=== PATIENT | male | born 1930 | race Caucasian/White ===

== ENCOUNTER 2017-01-07 16:50 | Observation (INO) | payer MEDICARE ==
--- OUTSIDE RECORDS SUMMARY | 2017-01-07 16:53 | XMS | Clinical Summary ---
:1930 Author Organization [facility] Address [address] [place] [address] Phone Care Team Providers Name Role Phone , Primary Care Provider Unavailable Allergies Not on File Current Medications Not on file Active Problems Not on file Social History Tobacco Use Types Packs/Day Years Used Date Never Assessed Sex Assigned at Date Recorded Not on file Last Filed Vital Signs Not on file Plan of Treatment Not on file Results Not on filefrom Last 3 Months
[2017-01-07 17:28] LABS: #Basophils 0.1 thou/uL (0.0-0.2); #Eosinphils 0.2 thou/uL (0.0-0.7); #Lymphocytes 1.9 thou/uL (1.20-3.40); #Monocytes 0.7 thou/uL (0.11-0.59); #Neutrophils 6.3 thou/uL (1.40-6.50); %Basophils 0.8 % (0.0-1.0); %Eosinophils 2.4 % (0.0-10.0); %Lymphocytes 20.9 % (21.0-51.0); %Monocytes 7.5 % (0.0-10.0); Hematocrit 43.1 % (42.0-52.0); Mean Platelet Volume 9.1 fL (7.4-10.4); Red Blood Cell (RBC) Count 4.39 mill/uL (4.70-6.10); White Blood Cell (WBC) Count 9.2 thou/uL (4.8-10.8)
[2017-01-07 17:34] LABS: PTT 30.7 SEC (22.9-36.1); Prothrombin Time 14.9 SEC (12.0-14.7)
[2017-01-07] MEDS ORDERED: Ondansetron HCl/PF 4 MG/2 ML Vial ONE (17:52)
[2017-01-07 17:53] LABS: ALT (SGPT) 11 U/L (8-55); AST (SGOT) 12 U/L (5-34); Alkaline Phosphatase 78 U/L (40-150); Anion Gap 12 mmol/L (10-20); BUN (Urea Nitrogen) 14 mg/dL (8.4-25.7); Bilirubin, Total 0.5 mg/dL (0.2-1.2); Calc. Creatinine Clearance 0 mL/min (70-130); Calcium 8.8 mg/dL (7.8-10.44); Carbon Dioxide 21 mmol/L (23-31); Chloride 109 mmol/L (98-107); Estimated GFR-MDRD 88; Globulin 2.8 g/dL (2.4-3.5); Lipase 5 U/L (8-78); Protein, Total 6.5 g/dL (5.8-8.1)
[2017-01-07] MEDS ORDERED: Pantoprazole 40 MG VIAL ONE (18:50)
[2017-01-07] MEDS ORDERED: Sodium Chloride 0.9% 1,000 ML IV SCH (20:12)
[2017-01-07] MEDS ORDERED: Acetaminophen 325 MG TAB PO PRN ×2 (20:12)
[2017-01-07] MEDS ORDERED: Ondansetron HCl/PF 4 MG/2 ML Vial IVP PRN ×2 (20:12)
[2017-01-07] MEDS ORDERED: Ondansetron ODT 4 MG TAB SL PRN (20:12)
[2017-01-07] MEDS ORDERED: PROVENTIL INHALER 6.7 G (200 INHALATIONS) INH PRN (20:14)
[2017-01-07] MEDS ORDERED: Fluticasone Propionate Nasal Spray 16 gm Bottle NASAL PRN (20:14)
[2017-01-07 20:38] LABS: Hematocrit 44.6 % (42.0-52.0)
[2017-01-07] MEDS ORDERED: TESTOSTERONE TOP SCH (21:00)
[2017-01-07] MEDS ORDERED: Pantoprazole 40 MG VIAL IVP SCH (21:00)
--- NOTE | 2017-01-07 21:07 | HP ---
PRIMARY CARE PHYSICIAN: Dr. Pratik Mendoza. CHIEF COMPLAINT: Gastrointestinal bleed. HISTORY OF PRESENT ILLNESS: Mr. Justice is a pleasant 86-year-old gentleman, who was seen at [facility] on 01/07/2017. He was hospitalized at this facility in 06/2016 for GI bleed. He had bidirectional scopes at that t sudhir. He had a normal esophagogastroduodenoscopy. Colonoscopy showed a 1 cm cecal polyp, which was removed as well as 2 small ascending colon polyps, which were both removed. He also had heavy sigmo id diverticulosis. No active bleeding or bleeding lesions were infiltrated at that time. He reports doing well until last night. Last night, he thinks he may have had a dark stool, but is unsure. Around 4:00 p.m. today, he started having bloody diarrhea. He reports that the toilet bowl was filled with milka blood. He reports that the blood was maroon to red in color. However, he al so reports that he may have seen some black material in the stool. He denies any chest pain, shortness of breath, fevers, or lightheadedness. He denies any abdominal pain. He came to the emergency room. There, he had another bowel movement, with 3 blood clots. REVIEW OF SYSTEMS: The following complete review of systems was negative, unless otherwise mentione d in the HPI or below: CONSTITUTIONAL: Weight loss or gain, sense of well-being, ability to conduct usual activities, exer cise tolerance. SKIN/BREAST: Rash, itching, changes in hair growth or loss, nail changes, breast lumps, tenderness, swelling, nipple discharge. EYES: Vision, double vision, tearing, blind spots, pain. ENT/MOUTH: Headaches (location, time of onset, duration, precipitating factors), vertigo, lighthead edness, injury. Vision, double vision, tearing, blind spots, pain, nose bleeding, colds, obstruction , discharge, dental difficulties, gingival bleeding, dentures, neck stiffness, pain, tenderness, mas ses in thyroid or other areas. CARDIOVASCULAR: Precordial pain, substernal distress, palpitations, syncope, dyspnea on exertion, o rthopnea, nocturnal paroxysmal dyspnea, edema, cyanosis, hypertension, heart murmurs, varicosities, phlebitis, claudication. RESPIRATORY: Pain, shortness of breath, wheezing, stridor, cough, hemoptysis, fever or night sweats . GASTROINTESTINAL: Poor appetite, dysphagia, indigestion, abdominal pain, heartburn, eructation, sasha sea, vomiting, hematemesis, jaundice, constipation, or diarrhea, abnormal stools (nicki-colored, lynette y, bloody, greasy, foul smelling), flatulence, hemorrhoids, recent changes in bowel habits. GENITOURINARY: Urgency, frequency, dysuria, nocturia, hematuria, polyuria, oliguria, unusual (or ch gerard in) color of urine, stones, hesitancy, change in size of stream, dribbling, acute retention or incontinence, libido, potency. MUSCULOSKELETAL: Pain, swelling, redness or heat of muscles or joints, limitation, of motion, muscu lar weakness, atrophy, cramps. NEUROLOGIC/PSYCHIATRIC: Convulsions, paralyses, tremor, incoordination, paresthesias, difficulties with memory of speech, sensory or motor disturbances, or muscular coordination (ataxia, tremor), emo tional problems, anxiety, depression, previous psychiatric care, unusual perceptions, hallucinations . ALLERGY/IMMUNOLOGIC: Skin rash, anemia, bleeding tendency, polydipsia, polyuria, intolerance to hea t or cold. PAST MEDICAL HISTORY: Significant for diverticulosis, osteoarthritis, gout, dyslipidemia, and asthm a. PAST SURGICAL HISTORY: Significant for inguinal hernia repair, back surgery, right total hip arthro plasty, bilateral cataract surgery, left knee replacement and bidirectional GI scopes. ALLERGIES: LORAZEPAM, NONSTEROIDAL ANTI-INFLAMMATORY AGENTS and CODEINE. CURRENT MEDICATIONS: Protonix 40 mg daily, amlodipine 10 mg daily, Breo Ellipta 100/25 mcg once kain ly, potassium chloride 20 mEq daily. He may be on other medications as well, these need to be abraham fied. FAMILY HISTORY: Significant for gastric ulcers in his father. SOCIAL HISTORY: The patient denies tobacco use, reports rare alcohol use, denies recreational drug use. PHYSICAL EXAMINATION: GENERAL: Mr. Justice is awake and alert, not in acute distress. VITAL SIGNS: Blood pressure is 152/78, pulse is 71. He is breathing at rate of 24 and saturating 9 6% on room air. He is afebrile. EYES: No scleral icterus. No conjunctival pallor. ENT: Moist mucosal membranes, no oropharyngeal erythema or exudates. NECK: Supple, nontender, normal range of movement, trachea is midline. RESPIRATORY: Accessory muscles of breathing are not active. Chest wall movements are symmetric phuc aterally. LUNGS: Clear to auscultation without wheeze, rhonchi or crepitations. CARDIOVASCULAR: S1 and S2 are heard, regular. Peripheral pulses palpable. No carotid bruit, no pe ricardial rub. ABDOMEN: Soft, nontender, bowel sounds heard, no hepatomegaly, no splenomegaly. NEUROLOGIC: Cranial nerves II-XII are intact. Deep tendon reflexes are 2+. SKIN: No rashes or subcutaneous nodules. MUSCULOSKELETAL: Power is 5/5 in all 4 extremities. Normal range of movement at all major extremit y joints. NEUROLOGIC: Cranial nerves II-XII are intact. Deep tendon reflexes are 2+. PSYCHIATRIC: Normal mood and normal affect, patient is oriented to time, place, and person. LABORATORY DATA: Mr. Justice's labs and investigations were reviewed. He had an electrocardiogra m, which showed sinus rhythm, no ST changes to suggest an acute coronary syndrome. Laboratory inves tigations show hemoglobin 14.3, normal white count, normal platelet count, INR 1.2 and unremarkable comprehensive metabolic profile. ASSESSMENT AND PLAN: Mr. Justice is a pleasant 86-year-old gentleman, who was seen at [facility] on 01/07/2017. His problem list includes: 1. Gastrointestinal bleed: Most likely lower gastrointestinal bleed, given his history as well as description of the blood. However, he does report some black material. He will be admitted to the hospital on observation status. We will recheck his hemoglobin. We will start him on a PPI for now . Gastroenterology Service has already been consulted by the Emergency Room Department. 2. Gout: Continue allopurinol. 3. Dyslipidemia: Continue statin. 4. Asthma: Resume home medications after confirmation. Asthma is stable. LEVEL OF RISK: Moderate. LEVEL OF COMPLEXITY: Moderate. CODE STATUS: I discussed his code status. He is FULL CODE.
[2017-01-07] MEDS: ALFUZOSIN HCL 10 MG PO SCH (21:28)
[2017-01-07] MEDS: Temazepam 15 MG CAP PO SCH (21:28)
[2017-01-07] MEDS: cycloSPORINE 0.05% Ophthalmic Droperette EA EYE SCH (21:29)
[2017-01-07 21:58] VITALS: BMI 25.8
[2017-01-08 05:19] LABS: #Basophils 0.1 thou/uL (0.0-0.2); #Eosinphils 0.5 thou/uL (0.0-0.7); #Lymphocytes 2.9 thou/uL (1.20-3.40); #Neutrophils 3.9 thou/uL (1.40-6.50); %Basophils 1.3 % (0.0-1.0); %Eosinophils 5.6 % (0.0-10.0); %Lymphocytes 34.5 % (21.0-51.0); %Monocytes 11.6 % (0.0-10.0); Hematocrit 39.1 % (42.0-52.0); Mean Platelet Volume 9.4 fL (7.4-10.4); Red Blood Cell (RBC) Count 3.98 mill/uL (4.70-6.10); White Blood Cell (WBC) Count 8.4 thou/uL (4.8-10.8)
[2017-01-08 05:38] LABS: Anion Gap 9 mmol/L (10-20); BUN (Urea Nitrogen) 14 mg/dL (8.4-25.7); Calc. Creatinine Clearance 80 mL/min (70-130); Calcium 8.6 mg/dL (7.8-10.44); Carbon Dioxide 24 mmol/L (23-31); Chloride 111 mmol/L (98-107); Estimated GFR-MDRD 87
[2017-01-08] MEDS: Atorvastatin Calcium 20 MG TAB PO SCH (08:09)
[2017-01-08] MEDS: Tamsulosin HCl 0.4 MG CAP PO SCH (08:09)
[2017-01-08] MEDS: Allopurinol 300 MG TAB PO SCH (08:09)
[2017-01-08] MEDS: cycloSPORINE 0.05% Ophthalmic Droperette EA EYE SCH ×2 (08:15→20:51)
[2017-01-08] MEDS: ALFUZOSIN HCL 10 MG PO SCH ×2 (08:15→19:56)
[2017-01-08] MEDS ORDERED: Pantoprazole 40 MG VIAL IVP SCH (09:00)
--- NOTE | 2017-01-08 13:45 | CON ---
DATE OF CONSULTATION: 01/08/2017 HISTORY OF PRESENT ILLNESS: The patient is an 86-year-old male, who was in his normal sta te of health until yesterday afternoon when he started passing some dark blood per rectum. He descr ibed the blood as black. He has had similar episodes, the last being in June of this year, at [facility] time he was seen by Dr. Alan with a similar presentation. At that time, he went both upper and lo wer endoscopy and this showed a normal EGD in the colon. He had diverticulosis of the sigmoid and s everal small polyps. He reports he has had bowel movements up to 4 in the morning and then his last bowel movement he said was without any blood. He denies any NSAIDs, any blood thinners. He denies any abdominal pain, any weight loss. He denies any vomiting. He was slightly nauseated yesterday. PAST MEDICAL HISTORY: Includes diverticulosis, gout, hyperlipidemia and asthma. PAST SURGICAL HISTORY: Includes a knee surgery, hip surgery, inguinal hernia. ALLERGIES: Include CODEINE, LORAZEPAM, NSAIDS, AMBIEN and DARVOCET. CURRENT MEDICATIONS: Include Protonix 40 mg p.o. daily, amlodipine 10 mg p.o. daily, Breo Ellipta 1 00/25 mcg p.o. daily, potassium chloride 20 mEq per day, verapamil 180 mg p.o. b.i.d., Restoril 15 m g p.o. at bedtime, tamsulosin 0.5 mg daily, hydrocodone 1-2 tabs p.o. q.6 hours p.r.n. He takes 1-2 week eyedrops, stool softener, Lipitor 20 mg p.o. daily, allopurinol 300 mg p.o. daily, alfuzosin 1 0 mg p.o. b.i.d. and albuterol 90 mcg daily p.r.n. SOCIAL HISTORY: Does not smoke or drink. FAMILY HISTORY: Negative for GI or liver disease. REVIEW OF SYSTEMS: CONSTITUTIONAL: No fever or chills. No weight loss. EYES: No blurred vision or double vision. ENT: No sore throat or earaches. CARDIOVASCULAR: No chest pain or palpitations. PULMONARY: No shortness of breath, cough or wheezing. GASTROINTESTINAL: See above. GENITOURINARY: No hematuria or dysuria. MUSCULOSKELETAL: No joint pain or muscle weakness. SKIN: No rashes. NEUROLOGIC: No numbness or seizure activity. PHYSICAL EXAMINATION: GENERAL: Shows a well-developed, well-nourished elderly male, in no acute distress. VITAL SIGNS: Temperature 98.6, pulse 72, respiration 18, blood pressure 124/65. HEENT: Unremarkable. NECK: Supple. CHEST: Clear. CARDIOVASCULAR: Regular rate and rhythm. ABDOMEN: Soft, nontender without organomegaly or masses. Bowel sounds are present and normoactive. RECTAL: Deferred. EXTREMITIES: Normal. NEUROLOGIC: Nonfocal. LABORATORY DATA: Shows admission hemoglobin of 14.3, dropping to 12.6. PT is now 49 with INR 1.2. Chemistries significant for a chloride of 109, CO2 of 21, lipase 5. ASSESSMENT: 1. Gastrointestinal blood -- I suspect this is a lower diverticular bleed. 2. History of multiple gastrointestinal bleeds in the past felt to be diverticular hemorrhage. 3. History of colon polyps. 4. Anemia secondary to gastrointestinal blood loss. RECOMMENDATIONS: 1. Resume diet. 2. Monitor H\T\H. 3. If the patient's blood count was normal in the morning, he could be discharged from [facility]
[2017-01-08] MEDS ORDERED: Melatonin 3 MG TAB PO PRN (15:41)
--- NOTE | 2017-01-08 15:43 | PDOC.PN ---
- Subjective Encounter Start Date: 01/08/17 Encounter Start Time: 15:41 Patient seen and examined. No new complaints. No overnight events. Had a BM earlier today - no blood per patient report - Objective Resuscitation Status: Resuscitation Status FULL:Full Resuscitation MAR Reviewed: Yes Vital Signs & Weight: Vital Signs (12 hours) Temp Pulse Resp BP Pulse Ox 01/08/17 09:12 93 L 01/08/17 08:30 98.6 F 72 18 01/08/17 07:25 98.6 F 72 18 124/65 91 L 01/08/17 05:02 98.5 F 75 20 137/66 97 Weight Weight 190 lb 11.2 oz I&O: 01/07/17 01/08/17 01/09/17 06:59 06:59 06:59 Intake Total 899 700 Balance 899 700 Result Diagrams: 01/08/17 05:02 01/08/17 05:02 Phys Exam - Physical Examination Constitutional: NAD Respiratory: no wheezing, no rhonchi Cardiovascular: RRR, no rub Gastrointestinal: soft, non-tender, positive bowel sounds Musculoskeletal: no edema Neurological: moves all 4 limbs Psychiatric: A&O x 3 Dx/Plan (1) Lower GI bleed Code(s): K92.2 - GASTROINTESTINAL HEMORRHAGE, UNSPECIFIED Status: Acute (2) Anemia due to acute blood loss Code(s): D62 - ACUTE POSTHEMORRHAGIC ANEMIA Status: Acute (3) CKD (chronic kidney disease) stage 2, GFR 60-89 ml/min Code(s): N18.2 - CHRONIC KIDNEY DISEASE, STAGE 2 (MILD) Status: Chronic (4) HLD (hyperlipidemia) Code(s): E78.5 - HYPERLIPIDEMIA, UNSPECIFIED Status: Chronic (5) Mild intermittent asthma Code(s): J45.20 - MILD INTERMITTENT ASTHMA, UNCOMPLICATED Status: Chronic - Plan cont current plan of care, plan discussed w/ family, out of bed/ambulate, DVT proph w/SCDs * AM labs * GI following * DC in AM if H/H stable per GI * Cont current meds as below Review of Systems - Review of Systems Constitutional: negative: Fever, Chills, Sweats, Weakness, Malaise, Other Respiratory: negative: Cough, Dry, Shortness of Breath, Hemoptysis, SOB with Excertion, Pleuritic Pain, Sputum, Wheezing Cardiovascular: negative: Chest Pain, Palpitations, Orthopnea, Paroxysmal Noc. Dyspnea, Edema, Light Headedness, Other Genitourinary: negative: Dysuria, Frequency, Incontinence, Hematuria, Retention , Other - Medications/Allergies Allergies/Adverse Reactions: Allergies Allergy/AdvReac Type Severity Reaction Status Date / Time codeine Allergy Unknown Verified 05/20/14 09:49 lorazepam Allergy Verified 05/20/14 09:49 NSAIDS (Non-Steroidal AdvReac Unknown Verified 05/20/14 09:49 Anti-Inflamma zolpidem tartrate AdvReac Unknown Verified 05/20/14 09:49 [From Ambien] propoxyphene napsylate AdvReac Verified 05/20/14 09:49 [From Darvocet-N 100] Medications: Current Medications Acetaminophen (Tylenol) 650 mg PO Q4H PRN PRN Reason: Headache/Fever or Pain Albuterol Sulfate (Proventil Hfa) 1 puff INH DAILYPRN PRN PRN Reason: SOB &/or Wheezing Alfuzosin HCl (Uroxatral) 10 mg PO BID [facility] Last Admin: 01/08/17 08:15 Dose: 10 mg Allopurinol (Zyloprim) 300 mg PO DAILY [facility] Last Admin: 01/08/17 08:09 Dose: 300 mg Atorvastatin Calcium (Lipitor) 20 mg PO DAILY [facility] Last Admin: 01/08/17 08:09 Dose: 20 mg Cyclosporine (Restasis) 0 ml EA EYE BID [facility] Last Admin: 01/08/17 08:15 Dose: 0.4 ml Fluticasone Propionate (Flonase Nasal [place]) 0 gm NASAL DAILYPRN PRN PRN Reason: Nasal Congestion Melatonin (Melatonin) 3 mg PO HS PRN PRN Reason: Insomnia Ondansetron HCl (Zofran) 4 mg IVP Q6H PRN PRN Reason: Nausea/Vomiting Pantoprazole Sodium (Protonix) 40 mg PO BID [facility] Last Admin: 01/08/17 09:20 Dose: Not Given Sodium Chloride (Flush - Normal Saline) 10 ml IV BID [facility] Last Admin: 01/08/17 08:12 Dose: Not Given Tamsulosin HCl (Flomax) 0.4 mg PO DAILY [facility] Last Admin: 01/08/17 08:09 Dose: 0.4 mg Temazepam (Restoril) 15 mg PO HS [facility] Last Admin: 01/07/17 21:28 Dose: 15 mg Verapamil HCl (Calan Sr) 180 mg PO BID [facility] Last Admin: 01/08/17 08:09 Dose: 180 mg
[2017-01-08] MEDS: Temazepam 15 MG CAP PO SCH (20:51)
[2017-01-09 04:30] LABS: #Basophils 0.1 thou/uL (0.0-0.2); #Eosinphils 0.6 thou/uL (0.0-0.7); #Lymphocytes 2.7 thou/uL (1.20-3.40); #Neutrophils 3.7 thou/uL (1.40-6.50); %Basophils 0.9 % (0.0-1.0); %Eosinophils 7.6 % (0.0-10.0); %Lymphocytes 33.6 % (21.0-51.0); %Monocytes 12.1 % (0.0-10.0); Hematocrit 35.7 % (42.0-52.0); Red Blood Cell (RBC) Count 3.63 mill/uL (4.70-6.10); White Blood Cell (WBC) Count 8.2 thou/uL (4.8-10.8)
[2017-01-09 08:30] VITALS: BP 123/58; TEMP 98.9
--- NOTE | 2017-01-09 09:20 | PDOC.PN ---
- Subjective Encounter Start Date: 01/09/17 Encounter Start Time: 09:16 Subjective: no bleeding, feels good - Objective Resuscitation Status: Resuscitation Status FULL:Full Resuscitation MAR Reviewed: Yes Vital Signs & Weight: Vital Signs (12 hours) Temp Pulse Resp BP BP Pulse Ox 01/09/17 08:00 98.9 F 71 12 123/58 L 91 L 01/09/17 04:00 98.8 F 69 18 100/55 L 96 01/09/17 03:56 95 Weight Weight 190 lb 12.8 oz I&O: 01/08/17 01/09/17 01/10/17 06:59 06:59 06:59 Intake Total 899 1560 Output Total 1600 Balance 899 -40 Result Diagrams: 01/09/17 04:21 01/08/17 05:02 Phys Exam - Physical Examination Constitutional: NAD Neck: no JVD Respiratory: clear to auscultation bilateral Cardiovascular: RRR, no significant murmur Gastrointestinal: soft, non-tender, positive bowel sounds Musculoskeletal: no edema Dx/Plan (1) Anemia due to acute blood loss Code(s): D62 - ACUTE POSTHEMORRHAGIC ANEMIA Status: Acute (2) Lower GI bleed Code(s): K92.2 - GASTROINTESTINAL HEMORRHAGE, UNSPECIFIED Status: Acute (3) CKD (chronic kidney disease) stage 2, GFR 60-89 ml/min Code(s): N18.2 - Status: Chronic (4) HLD (hyperlipidemia) Code(s): E78.5 - HYPERLIPIDEMIA, UNSPECIFIED Status: Chronic (5) Mild intermittent asthma Code(s): J45.20 - MILD INTERMITTENT ASTHMA, UNCOMPLICATED Status: Chronic - Plan cont current tx, discuss with GI * .
[2017-01-09] MEDS: Allopurinol 300 MG TAB PO SCH (09:29)
[2017-01-09] MEDS: Tamsulosin HCl 0.4 MG CAP PO SCH (09:29)
[2017-01-09] MEDS: Atorvastatin Calcium 20 MG TAB PO SCH (09:30)
[2017-01-09] MEDS: ALFUZOSIN HCL 10 MG PO SCH (10:00)
[2017-01-09] MEDS: cycloSPORINE 0.05% Ophthalmic Droperette EA EYE SCH (11:21)
--- NOTE | 2017-01-09 12:40 | DIS ---
TRANSFER OF CARE NOTE DATE OF ADMISSION: 01/07/2017 DATE OF DISCHARGE: 01/09/2017 DISCHARGE DISPOSITION: Home. FINAL DIAGNOSES: 1. Lower gastrointestinal bleeding, stopped. 2. Dyslipidemia. 3. History of gout. 4. Unspecified, asthma. 5. Hypertension. DISCHARGE MEDICATIONS: Verapamil 180 mg twice a day, temazepam 15 mg at bedtime, Flomax 0.4 mg a da y, Viagra p.r.n., Protonix 40 mg a day, hydrocodone 5/325 1-2 tabs every 6 hours as needed, ferrous sulfate 300 mg a day, Lipitor 20 mg a day, allopurinol 300 mg a day, Alfuzosin 10 mg twice a day, al buterol HFA p.r.n. ALLERGIES: CODEINE, LORAZEPAM, NSAIDs, AMBIEN and DARVON. PENDING AT THE TIME OF DISCHARGE: Nothing. CODE STATUS: Full. HOSPITAL COURSE: The patient admitted with dark stool then had some bloody diarrhea. He was placed in the hospital. His bleeding has stopped. Serial hemoglobins were 14.3, 12.6, 11.6. Current vit al signs are stable with no tachycardia, etc. The remainder of his laboratory; white count was normal, platelet count was normal. Comp metabolic profile was normal except for a CO2 of 21, chloride 109. INR was 1.2. He was seen in consultation by Dr. Nikhil Burrell. He did not think that the patient needed further end oscopy as patient had lower diverticular bleed in the past. His hemoglobin is adequate. His vital signs are stable. He is being discharged. He has had no procedures. He has been told to see his P CP for followup in 7 days.
== END 2017-01-09 13:13 | disposition home or self-care (01) ==
LOC: ERS 16:50 → 2SW 18:18
PROVIDERS: ADMIT Internal Medicine; ATTEND Internal Medicine
DX: K92.2 Gastrointestinal hemorrhage, unspecified (principal); E78.5 Hyperlipidemia, unspecified; J45.909 Unspecified asthma, uncomplicated; I10 Essential (primary) hypertension; M10.9 Gout, unspecified; Z88.5 Allergy status to narcotic agent; Z88.6 Allergy status to analgesic agent; Z88.8 Allergy status to other drugs, medicaments and biological substances; Z98.890 Other specified postprocedural states; Z96.652 Presence of left artificial knee joint; Z87.11 Personal history of peptic ulcer disease
CPT/HCPCS: 80048; 80053; 82274; 83690; 85014; 85018; 85025 ×3; 85610; 85730; 86850; 86900; 86901; 93005; 96361 ×2; 96374; 96375; 96376; 99285; G0378; 36415; A4216; C9113; J2405

== ENCOUNTER 2018-10-25 09:45 | Inpatient (IN) | payer MEDICARE ==
[2018-10-25] MEDS ORDERED: Ketorolac Tromethamine 30 MG/ML VIAL ONE (10:33)
--- NOTE | 2018-10-25 11:07 | RAD ---
XR Knee Lt 4 View STANDARD HISTORY: Fall, left knee pain FINDINGS: No fracture or dislocation is identified. There are postop changes of total knee arthroplasty in good position and alignment. Vascular calcifications are present
--- NOTE | 2018-10-25 11:24 | RAD ---
LEFT HIP 2 VIEWS: Date: 10/25/18 HISTORY: Hip pain status post fall. FINDINGS: There is a nondisplaced intertrochanteric fracture of the left hip. Bones are demineralized. IMPRESSION: Nondisplaced intertrochanteric fracture of the left hip. POS: [facility]
--- NOTE | 2018-10-25 11:26 | RAD ---
AP PELVIS: Date: 10/25/18 HISTORY: Fall. FINDINGS: The bones are demineralized. A right hip prosthesis is present. There are vascular calcifications not ed. A nondisplaced intertrochanteric fracture of the left hip is seen. IMPRESSION: Intertrochanteric fracture of the left hi. POS: [facility]
[2018-10-25 12:29] LABS: #Eosinphils 0.2 thou/uL (0.0-0.7); #Lymphocytes 1.6 thou/uL (1.20-3.40); #Monocytes 0.8 thou/uL (0.11-0.59); #Neutrophils 9.6 thou/uL (1.40-6.50); %Basophils 0.4 % (0.0-1.0); %Eosinophils 1.6 % (0.0-10.0); %Lymphocytes 12.8 % (21.0-51.0); %Monocytes 6.8 % (0.0-10.0); %Neutrophils 78.4 % (42.0-75.0); Hemoglobin 12.6 g/dL (14.0-18.0); Mean Corpuscular HGB CONC 31.1 g/dL (32.0-36.0); Mean Corpuscular Volume 93.5 fL (78.0-98.0); Mean Platelet Volume 9.8 fL (7.4-10.4); Platelet Count 186 thou/uL (130-400); RBC Distribution Width 14.5 % (11.5-14.5); Red Blood Cell (RBC) Count 4.33 mill/uL (4.70-6.10); White Blood Cell (WBC) Count 12.3 thou/uL (4.8-10.8)
[2018-10-25 12:36] LABS: INR-International Normal Ratio 1.1; Prothrombin Time 14.4 SEC (12.0-14.7)
--- NOTE | 2018-10-25 13:01 | RAD ---
SINGLE VIEW CHEST: Date: 10/25/18 COMPARISON: 12/11/11. HISTORY: Slip and fall with chest pain. FINDINGS: Single view of the chest shows a normal sized cardiomediastinal silhouette with atherosclerotic calci fications in the aorta. There is no evidence of consolidation, mass, or pleural effusion. Degenerativ e changes are seen in the spine and shoulders. IMPRESSION: No evidence of acute cardiopulmonary disease. POS: [facility]
--- NOTE | 2018-10-25 13:13 | CON ---
DATE OF CONSULTATION: 10/25/2018 This is Marya Easton PA-C dictating a report for Lyle Busby MD. REQUESTING PHYSICIAN: Day Reynoso, Nurse Practitioner in the ER. CONSULTING PHYSICIAN: Lyle Busby MD. REASON FOR CONSULTATION: Left hip fracture. HISTORY OF PRESENT ILLNESS: This is an 87-year-old male, who presented to the emergency department by ground EMS transportation after a mechanical fall at home. The patient reported left hip pain and left knee pain. He states that he got up to use the bathroom and tripped and fell either over his sock or a rug. He denied hitting his head or any loss of consciousness. He denies any syncopal episode. He currently denies any numbness or tingling in the left lower extremity. This pain is worse with movement and relieved with rest, currently described as dull and achy in nature. PAST MEDICAL HISTORY: Significant for diverticulitis, herniated disk in the back, hypertension, asthmatic bronchitis. PAST SURGICAL HISTORY: Includes right hip surgery, left knee surgery, hernia surgery, cataract surgery, back surgery. SOCIAL HISTORY: The patient denies any alcohol, drug use, or smoking history. He lives at home with his , who is currently at bedside. He uses a cane to ambulate with. They live independently. REVIEW OF SYSTEMS: 10-point review of systems conducted and otherwise negative except for stated above. ALLERGIES: INCLUDE ACETAMINOPHEN, CODEINE, LORAZEPAM, NSAIDS, ZOLPIDEM, PROPOXYPHENE NAPSYLATE. FAMILY HISTORY: Reviewed, noncontributory. PHYSICAL EXAMINATION: VITAL SIGNS: Blood pressure 177/92, pulse of 72, respiratory rate of 20, temperature 98.8, pain level of 5, and O2 saturations of 97% on room air. GENERAL: The patient is awake and alert. He is very pleasant and cooperative with exam today. He is in no apparent distress. Nurses are currently attempting to start IV on him at this time. HEENT: Head is normocephalic and atraumatic. NECK: Supple. Trachea midline. Breathing is nonlabored. EXTREMITIES: All extremities were evaluated. No obvious deformities are noted. The left lower extremity shows that the patient is able to actively move his ankles and foot. He is able to wiggle his toes. Sensation intact distally. Capillary refill 3 seconds. Evaluation of the left thigh and hip region shows no skin lesions. The patient is able to slightly flex at the hip and bend the knee. This reproduces pain. The other three extremities were evaluated. No obvious injuries are noted. LABORATORY DATA: Unavailable at this time for review as nurses are still attempting to obtain an IV. RADIOGRAPHIC IMAGING: Today including 2 views of the left hip shows a nondisplaced intertrochanteric femur fracture. ASSESSMENT: Left hip intertrochanteric femur fracture. PLAN: At this time, the patient has been n.p.o. since last night. Per the patient's history, he has no significant cardiac history. We would like to take him to the operating room today in order to restore function and promote his ambulatory status. Risks, benefits, and alternatives of surgery were discussed at length with the patient and his today at bedside. They verbalized understanding and are amenable to this plan of care. He will be admitted to the Trauma Services. Postoperatively, he will be admitted to [place] [address] surgical floor, where he will work with physical therapist and occupational therapist. Long-term, his family would like for him to go to rehab. Job ID: [id number]
[2018-10-25] MEDS ORDERED: Dextrose 50% Abboject 50 ML SYRINGE SLOW IVP PRN (13:22)
[2018-10-25] MEDS ORDERED: hydrALAZINE 20 MG/ML VIAL SLOW IVP PRN (13:22)
[2018-10-25] MEDS ORDERED: Promethazine HCl 25 MG/ML VIAL IM PRN (13:22)
[2018-10-25] MEDS ORDERED: Ondansetron PF 4 MG/2 ML Vial IVP PRN (13:22)
[2018-10-25] MEDS ORDERED: Dextrose 5% in Water 1,000 ML IV PRN (13:22)
[2018-10-25] MEDS ORDERED: traMADol HCl 50 MG TAB PO PRN (13:26)
[2018-10-25] MEDS ORDERED: Sodium Chloride 0.9% 1,000 ML IV SCH (13:30)
[2018-10-25] MEDS ORDERED: CEFAZOLIN 2 GM in Premix Bag 1 BAG IVPB SCH (14:00)
--- NOTE | 2018-10-25 14:28 | HP ---
TRAUMA SURGEON: Dr. Gutierrez. CONSULTING PHYSICIAN: Dr. Busby. HISTORY OF PRESENT ILLNESS: The patient is an 87-year-old male, who presented through the emergency department via EMS after a mechanical fall at home. The patient reported he had gotten up to go to use the bathroom. He uses a cane and subsequently he got hung up in an archway and fell onto his left side. He reported left hip and knee pain. Denies loss of consciousness or anticoagulation use. He was not able to get up off the floor and ambulate after he fell, and subsequently, his called EMS. He denies nausea, vomiting, diarrhea, numbness and tingling in his lower extremities, or loss of consciousness. REVIEW OF SYSTEMS: All additional 10-point review of systems is negative except as indicated above. PAST MEDICAL HISTORY: Diverticulosis, osteoarthritis, gout, hyperlipidemia, asthma, hypertension, and BPH. PAST SURGICAL HISTORY: Right hip replacement, back surgeries, left knee replacement, bilateral inguinal hernia repairs. SOCIAL HISTORY: The patient lives at home with his . He walks with a walker. He drinks about 1 beer per week. He denies any history of drug or tobacco use. MEDICATIONS: 1. Flomax. 2. Restasis. 3. Senna. 4. Ferrous sulfate. 5. Verapamil. 6. Lipitor. 7. Fluticasone. 8. AndroGel. 9. Protonix. 10. Tylenol. 11. Melatonin. 12. Hydrochlorothiazide. 13. Lunesta. 14. Viagra. 15. Alfuzosin. 16. Tizanidine. 17. Losartan. 18. Potassium. 19. Allopurinol. ALLERGIES: NO KNOWN DRUG ALLERGIES. PHYSICAL EXAMINATION: VITAL SIGNS: Temperature 98.8, pulse 72, respirations 20, oxygen saturation 97% on room air, and blood pressure 166/82. PRIMARY SURVEY: Airway intact. Adequate breath sounds bilaterally. 2+ pulses in the bilateral radials, femorals, and DPs. GCS is 15. Gross motor and sensation are intact. No lacerations, bruising, or external bleeding. SECONDARY SURVEY: HEAD: Normocephalic, atraumatic. No gross palpable skull deformities. EYES: Pupils are 3 to 2, equal, round, and reactive to light bilaterally. ENT: No hemotympanum. No epistaxis. No septal hematoma. Midface stable to manipulation. No blood in the oropharynx. Dentition is intact. No anterior neck injury/crepitus/tenderness. C-SPINE: No step-offs or deformities. Nontender. C-collar not in place. CHEST: Nontender. No crepitus. No abrasions or ecchymosis. Equal chest movement. ABDOMEN: Soft, nontender, and nondistended. PELVIS: Stable to manipulation. Left-sided pelvic tenderness. No abrasions or ecchymosis. RECTAL: Deferred. GENITOURINARY: Deferred. EXTREMITIES: No gross deformities. Left-sided thigh tenderness and left knee tenderness. No abrasions or ecchymosis noted. 2+ pulses in the bilateral radials, femorals, and DPs bilaterally. BACK/SPINE: No step-offs or deformities. Nontender to palpation of the thoracic or lumbar spine. No abrasions or ecchymosis noted. NEUROLOGIC: 5/5 strength in the bilateral fountain brush assembler, plantar flexion, and dorsiflexion. Gross normal sensation x4 extremities. LABORATORY FINDINGS: White count 12.3, hemoglobin 12.6, hematocrit 40.0, and platelets 186. INR 1.1. Troponin less than 0.010. DIAGNOSTIC FINDINGS: Pelvic x-ray demonstrates intertrochanteric fracture of the left hip. Hip x-ray demonstrates nondisplaced intertrochanteric fracture of the left hip. X-ray of the left knee demonstrates no fractures or dislocation identified. There is a postop change of total knee arthroplasty in good position and alignment. Vascular calcifications are present. Chest x-ray demonstrates no evidence of acute cardiopulmonary disease. ASSESSMENT: 1. Status post mechanical fall from standing. 2. Left intertrochanteric femur fracture. 3. History of diverticulosis, osteoarthritis, gout, hyperlipidemia, asthma, hypertension, and benign prostatic hypertrophy. PLAN: The patient was seen and evaluated by Dr. Busby of Orthopedic Surgery and they are planning for fixation likely today if they are able to get the OR time. He will be kept n.p.o. with normal saline at 70 an hour until he is able to take in food. CMP is still pending and we will follow that up as well and address any further issues. We will provide the patient with p.o. pain control and physical and occupational therapy will see the patient postoperatively. He will likely need discharge to rehab facility and we will place a consult for rehab screen as well. We will start his home medications as clinically indicated. The patient will be discussed with Dr. Gutierrez after this dictation. Job ID: [id number]
[2018-10-25 14:57] LABS: Albumin 3.8 g/dL (3.4-4.8)
[2018-10-25 14:58] LABS: Chloride 110 mmol/L (98-107); Potassium 3.6 mmol/L (3.5-5.1); Sodium 141 mmol/L (136-145)
[2018-10-25 14:59] LABS: Calcium 9.2 mg/dL (7.8-10.44); Glucose 94 mg/dL (83-110)
[2018-10-25 15:00] LABS: Globulin 2.3 g/dL (2.4-3.5); Protein, Total 6.1 g/dL (5.8-8.1)
[2018-10-25] MEDS ORDERED: Heparin 1,000 UNITS/ML VIAL ONE (15:00)
[2018-10-25 15:01] LABS: Anion Gap 13 mmol/L (10-20); Bilirubin, Total 0.8 mg/dL (0.2-1.2); Carbon Dioxide 22 mmol/L (23-31)
[2018-10-25 15:02] LABS: Alkaline Phosphatase 84 U/L (40-150)
[2018-10-25 15:03] LABS: Calc. Creatinine Clearance 0 mL/min (70-130); Estimated GFR-MDRD 87
[2018-10-25 15:04] LABS: BUN (Urea Nitrogen) 14 mg/dL (8.4-25.7)
[2018-10-25 15:05] LABS: ALT (SGPT) 14 U/L (8-55); AST (SGOT) 15 U/L (5-34)
[2018-10-25] MEDS ORDERED: Glycopyrrolate 0.2 MG/ML 5 ML SYRINGE ONE (15:34)
[2018-10-25] MEDS ORDERED: Ondansetron PF 4 MG/2 ML Vial ONE (15:34)
[2018-10-25] MEDS ORDERED: PROPOFOL 200 MG/20 ML VIAL ONE (15:34)
[2018-10-25] MEDS ORDERED: Lidocaine 1% PF 5 ML VIAL ONE (15:34)
[2018-10-25] MEDS ORDERED: Rocuronium Bromide 10 MG/ML (10ML VIAL) ONE (15:34)
[2018-10-25] MEDS ORDERED: Fentanyl 100 MCG/2 ML VIAL ONE ×3 (15:37→17:41)
[2018-10-25] MEDS ORDERED: Morphine 2 MG/ML SYRINGE SLOW IVP PRN (18:23)
[2018-10-25] MEDS: Senokot S 8.6-50 MG TAB PO SCH (19:53)
[2018-10-25] MEDS: traMADol HCl 50 MG TAB PO SCH ×2 (19:54)
[2018-10-25] MEDS: Acetaminophen 1,000 MG in Premix Bag 1 BAG IVPB SCH (19:59)
[2018-10-25] MEDS ORDERED: PROVENTIL INHALER 6.7 G (200 INHALATIONS) INH PRN (20:08)
[2018-10-25] MEDS ORDERED: Fluticasone Propionate Nasal Spray 16 gm Bottle NASAL PRN (20:08)
[2018-10-25 20:16] VITALS: BMI 25.9
[2018-10-25] MEDS ORDERED: Famotidine 20 MG TAB PO SCH (21:00)
--- NOTE | 2018-10-25 21:41 | OP ---
DATE OF PROCEDURE: 10/25/2018 PROCEDURE PERFORMED: Left intertrochanteric femur fracture, dynamic hip screw fixation. PREOPERATIVE DIAGNOSIS: Left intertrochanteric femur fracture. POSTOPERATIVE DIAGNOSIS: Left intertrochanteric femur fracture. COMPLICATIONS: None. ESTIMATED BLOOD LOSS: Minimal. MANAGER RESORT: Pio Santiago PA-C IMPLANTS: Three hole Synthes 135-degree dynamic hip screw and plate. INDICATIONS: Mr. Justice is an 87-year-old male, who fell and fractured the proximal femur. He was indicated for fixation to restore anatomic alignment and promote the ability to mobilize. Goal is to prevent complications of prolonged bedrest. Risks have been reviewed in detail. He elected to proceed with the operation. DESCRIPTION OF PROCEDURE: Mr. Justice was identified in the preoperative holding area. His correct extremity was marked. He was carried to the operating room. He was positioned supine. General anesthesia was induced. A multidisciplinary time-out was performed. The left lower extremity was prepped and draped in sterile fashion. At this point, we began the procedure with traction on the lower extremity. We took intraoperative x-rays, confirmed we had a full reduction. There were no complications with this. We prepped the left lower extremity. We then made an incision over the lateral thigh. We dissected down through the subcutaneous tissues to the fascia, which was opened. At this point, we used an elevator to clear the lateral cortex of the bone. We then applied a 135-degree guide on the femur. We placed a guide pin in the center position of the femoral head. This was checked with intraoperative x-ray. We then overdrilled the guide pin. We measured an appropriate length and placed our screw. We then impacted a three hole side plate. We placed 3 screws in the plate after drilling and measuring length. We took final x-ray images. There were no complications. We thoroughly irrigated and closed in appropriate layers including angelina for the skin. A sterile dressing was applied. Job ID: [id number]
[2018-10-25] MEDS: Ibuprofen 600 MG TAB PO SCH ×2 (22:04→22:05)
[2018-10-25] MEDS: Melatonin 3 MG TAB PO SCH (22:05)
[2018-10-25] MEDS: cycloSPORINE 0.05% Ophthalmic Droperette EA EYE SCH (22:06)
[2018-10-25] MEDS: CEFAZOLIN 2 GM in Premix Bag 1 BAG IVPB SCH (22:30)
[2018-10-26] MEDS: Acetaminophen 1,000 MG in Premix Bag 1 BAG IVPB SCH ×2 (00:05→06:17)
[2018-10-26] MEDS: traMADol HCl 50 MG TAB PO SCH ×5 (01:39→20:49)
[2018-10-26] MEDS: Tamsulosin HCl 0.4 MG CAP PO SCH (04:14)
[2018-10-26 05:24] LABS: Anion Gap 11 mmol/L (10-20); BUN (Urea Nitrogen) 13 mg/dL (8.4-25.7); Calc. Creatinine Clearance 81 mL/min (70-130); Carbon Dioxide 21 mmol/L (23-31); Chloride 108 mmol/L (98-107); Estimated GFR-MDRD 89; Glucose 112 mg/dL (83-110); Magnesium 1.6 mg/dL (1.6-2.6); Phosphorus 3.3 mg/dL (2.3-4.7); Sodium 136 mmol/L (136-145)
[2018-10-26 05:35] LABS: #Eosinphils 0.9 thou/uL (0.0-0.7); #Lymphocytes 2.2 thou/uL (1.20-3.40); #Monocytes 0.8 thou/uL (0.11-0.59); #Neutrophils 5.5 thou/uL (1.40-6.50); %Basophils 0.4 % (0.0-1.0); %Eosinophils 9.1 % (0.0-10.0); %Lymphocytes 22.9 % (21.0-51.0); %Monocytes 8.5 % (0.0-10.0); Hemoglobin 9.5 g/dL (14.0-18.0); Mean Corpuscular HGB CONC 30.6 g/dL (32.0-36.0); Mean Corpuscular Hemoglobin 28.5 pg (27.0-31.0); Mean Corpuscular Volume 93.3 fL (78.0-98.0); Mean Platelet Volume 9.8 fL (7.4-10.4); Platelet Count 151 thou/uL (130-400); RBC Distribution Width 14.2 % (11.5-14.5); Red Blood Cell (RBC) Count 3.33 mill/uL (4.70-6.10); White Blood Cell (WBC) Count 9.4 thou/uL (4.8-10.8)
[2018-10-26] MEDS: Ibuprofen 600 MG TAB PO SCH ×3 (06:20→20:51)
[2018-10-26] MEDS: CEFAZOLIN 2 GM in Premix Bag 1 BAG IVPB SCH (06:21)
[2018-10-26] MEDS ORDERED: PHOS-NAK 1 PKT PACK PO SCH (07:30)
[2018-10-26] MEDS ORDERED: Magnesium 2 GM/50 ML 2 GM in Premix Bag 1 BAG IVPB SCH (07:30)
--- NOTE | 2018-10-26 08:09 | RAD ---
LEFT HIP 2 VIEWS: Date: 10/25/18 HISTORY: Open reduction and internal fixation. COMPARISON: None. FINDINGS: Satisfactory alignment post fixation intertrochanteric fracture left hip. IMPRESSION: Satisfactory postoperative appearance. POS: CET
[2018-10-26] MEDS: Atorvastatin Calcium 10 MG TAB PO SCH (08:46)
[2018-10-26] MEDS: Aspirin 81 mg Enteric Coated Tablet PO SCH ×2 (08:46→20:51)
[2018-10-26] MEDS: Senokot S 8.6-50 MG TAB PO SCH ×2 (08:46→20:51)
[2018-10-26] MEDS: Polyethylene Glycol 3350 17 GM Packet PO SCH (08:47)
[2018-10-26] MEDS: cycloSPORINE 0.05% Ophthalmic Droperette EA EYE SCH ×2 (08:47→20:50)
[2018-10-26] MEDS: Acetaminophen 500 MG TAB PO SCH ×2 (12:25→17:51)
--- NOTE | 2018-10-26 15:15 | PRG ---
DATE OF SERVICE: 10/26/2018 SUBJECTIVE: The patient was seen this morning, sitting up in bed with no signs of acute distress. He reported he slept okay overnight, but was waking up multiple times. He did feel tired today. He is postoperative day #1, status post left intertrochanteric femur fixation with dynamic hip screw fixation. He did have breakfast this morning and had worked with Physical Therapy. Reported that pain was well controlled when he was lying in bed, but the pain was rated at 7 with physical therapy. He had not taken additional pain medications before therapy, but did think that was a good idea if we started that. He denies nausea, vomiting, and diarrhea. OBJECTIVE: VITAL SIGNS: Temperature 97.6, pulse 57, respirations 16, oxygen saturation 94% on room air, and blood pressure 100/43. GENERAL: Well-appearing elderly male, sitting up in bed with no signs of acute distress. PULMONARY: Equal chest rise and fall. Clear breath sounds bilaterally. No signs of acute respiratory distress. CARDIAC: Bradycardic, but regular rhythm. No murmurs, gallops, or rubs. GI: Abdomen is soft, nontender, and nondistended. EXTREMITIES: 2+ pulses in all extremities. No significant swelling noted. Gross motor and sensation intact. NEUROLOGIC: GCS is 15. Pupils equal, round, reactive to light bilaterally. LABORATORY FINDINGS: White count 9.4, hemoglobin 9.5, hematocrit 31.0, and platelets 151. Sodium 136, potassium 4.0, chloride 108, carbon dioxide 21, BUN 13, creatinine 0.82, glucose 112, phosphorus 3.3, and magnesium 1.6. DIAGNOSTIC FINDINGS: There are no new diagnostic findings to report. ASSESSMENT: 1. Status post mechanical fall from standing. 2. Left intertrochanteric femur fracture, status post repair. 3. Hypomagnesemia and hypophosphatemia. 4. History of hypertension, Diverticulosis, Osteoarthritis, Gout, Hyperlipidemia , Asthma, Benign prostatic hypertrophy, and Hypotension. 5. Acute traumatic pain. PLAN: The patient will continue current diet, but we will add Ensure b.i.d. to help with better nutrition. We will also replace the magnesium and phosphorus today and follow it up tomorrow as well as he may need further electrolyte replacement over the next week or so. He has not yet been restarted on all of his home medications. We are holding many of his multiple antihypertensives as he is a little bit hypotensive. Postoperatively, he is also slightly bradycardic. We will continue to monitor this closely. There is no need to move him to telemetry or ICU at this time. We will also closely watch his urinary output as he may need further fluid resuscitation. We will start him on DVT prophylaxis with aspirin 81 mg b.i.d. He is to work with Physical Therapy and Occupational Therapy today in preparations for discharge to acute rehab facility. The patient will definitely benefit from rehab facility for both physical therapy needs as well as physician oversight of multiple medications, especially in the titration of his multiple antihypertensive medications. We will reassess the patient this afternoon. The patient was seen and examined by Dr. Gutierrez and myself this morning during rounds. Job ID: [id number] [facility]
[2018-10-26] MEDS: Alfuzosin 10 MG TABDR...ER PO SCH (20:50)
[2018-10-26] MEDS: Melatonin 3 MG TAB PO SCH (20:51)
[2018-10-26] MEDS ORDERED: Cyclobenzaprine 10 MG TAB PO PRN (20:59)
[2018-10-26] MEDS ORDERED: Bisacodyl 10 MG SUPP PR PRN (21:00)
[2018-10-27] MEDS: Acetaminophen 500 MG TAB PO SCH ×5 (00:10→23:17)
[2018-10-27] MEDS: traMADol HCl 50 MG TAB PO SCH ×4 (02:49→20:59)
[2018-10-27 05:33] LABS: #Eosinphils 0.8 thou/uL (0.0-0.7); #Monocytes 0.7 thou/uL (0.11-0.59); #Neutrophils 3.6 thou/uL (1.40-6.50); %Basophils 0.5 % (0.0-1.0); %Eosinophils 11.8 % (0.0-10.0); %Lymphocytes 27.8 % (21.0-51.0); %Monocytes 9.6 % (0.0-10.0); %Neutrophils 50.4 % (42.0-75.0); Hemoglobin 9.7 g/dL (14.0-18.0); Mean Corpuscular Hemoglobin 29.6 pg (27.0-31.0); Mean Corpuscular Volume 95.2 fL (78.0-98.0); Mean Platelet Volume 9.8 fL (7.4-10.4); Platelet Count 144 thou/uL (130-400); RBC Distribution Width 14.5 % (11.5-14.5); Red Blood Cell (RBC) Count 3.26 mill/uL (4.70-6.10); White Blood Cell (WBC) Count 7.2 thou/uL (4.8-10.8)
[2018-10-27 05:37] LABS: Anion Gap 9 mmol/L (10-20); BUN (Urea Nitrogen) 12 mg/dL (8.4-25.7); Calc. Creatinine Clearance 78 mL/min (70-130); Calcium 8.5 mg/dL (7.8-10.44); Carbon Dioxide 26 mmol/L (23-31); Chloride 108 mmol/L (98-107); Estimated GFR-MDRD 86; Glucose 107 mg/dL (83-110); Phosphorus 3.1 mg/dL (2.3-4.7); Sodium 139 mmol/L (136-145)
[2018-10-27] MEDS: Ibuprofen 600 MG TAB PO SCH ×3 (06:37→21:01)
[2018-10-27] MEDS ORDERED: PHOS-NAK 1 PKT PACK PO SCH (08:30)
[2018-10-27] MEDS: Polyethylene Glycol 3350 17 GM Packet PO SCH (08:54)
[2018-10-27] MEDS: Aspirin 81 mg Enteric Coated Tablet PO SCH ×2 (08:54→21:01)
[2018-10-27] MEDS: Allopurinol 300 MG TAB PO SCH (08:55)
[2018-10-27] MEDS: Atorvastatin Calcium 10 MG TAB PO SCH (08:55)
[2018-10-27] MEDS: Senokot S 8.6-50 MG TAB PO SCH ×2 (08:55→21:01)
[2018-10-27] MEDS: Tamsulosin HCl 0.4 MG CAP PO SCH (08:55)
[2018-10-27] MEDS: Alfuzosin 10 MG TABDR...ER PO SCH ×2 (09:54→21:00)
[2018-10-27] MEDS: cycloSPORINE 0.05% Ophthalmic Droperette EA EYE SCH ×2 (09:54→21:02)
--- NOTE | 2018-10-27 15:04 | PRG ---
DATE OF SERVICE: 10/27/2018 SUBJECTIVE: The patient was seen this morning lying in bed. He was taking a nap, but was easily arousable. He reported some spasm-like pain to his left lower extremity overnight. Also, reported he has not had a bowel movement in several days. Otherwise, reports that pain is better controlled when working with physical therapy when he takes tramadol about 30 minutes before therapy as recommended yesterday. He is tolerating a regular diet and is drinking his Ensure. OBJECTIVE: VITAL SIGNS: Temperature 98.1, pulse 61, respirations 16, oxygen saturation 92% on room air, blood pressure 101/51. GENERAL: Well-appearing elderly male, lying in bed, with no signs of acute distress. PULMONARY: Equal chest rise and fall. Clear breath sounds bilaterally. No signs of acute respiratory distress. CARDIAC: Regular rate and rhythm. No murmurs, gallops, or rubs. GI: Abdomen is soft, nontender, and nondistended. EXTREMITIES: 2+ pulses in all extremities. No significant swelling noted. Gross motor and sensation are intact. Mild tenderness to the left thigh area. NEUROLOGIC: GCS is 15. Pupils are equal, round, and reactive to light bilaterally. LABORATORY FINDINGS: White count 7.2, hemoglobin 9.7, hematocrit 31.1, platelets 144. Sodium 139, potassium 4.0, chloride 109, carbon dioxide 26, BUN 12, creatinine 0.85, . Phosphorus 3.1. Magnesium 2.0. DIAGNOSTIC FINDINGS: There are no new diagnostic findings to report. ASSESSMENT: 1. Status post mechanical fall from standing. 2. Left intertrochanteric femur fracture, status post repair. 3. Hypophosphatemia. 4. Acute traumatic pain, improved. 5. History of hypertension, diverticulosis, osteoarthritis, gout, hyperlipidemia, asthma, BPH. 6. Hypotension, stable. PLAN: We will continue on the current diet and continue Ensure as previously ordered. We will replace phosphorus today, and we will continue to monitor the electrolytes closely over the next week. He has not been restarted on all of his home medications yet as his blood pressure is still on the lower side. We will continue to monitor that closely. He is taking plenty of fluids and voiding appropriately. Continue DVT prophylaxis with SCDs and aspirin 81 mg b.i.d. He will continue to work with Physical and Occupational Therapy. He will greatly benefit from rehab facility for both physical therapy needs as well as physician oversight for multiple medications, especially antihypertensives that need to be re-assessed daily. We will also start Flexeril today for additional pain control. The patient will be discussed with Dr. Gutierrez after this dictation. Job ID: [id number]
[2018-10-27] MEDS ORDERED: VERAPAMIL 180 MG PO SCH (18:45)
[2018-10-27] MEDS: Melatonin 3 MG TAB PO SCH (21:02)
[2018-10-28] MEDS: traMADol HCl 50 MG TAB PO SCH ×4 (01:39→20:51)
[2018-10-28 05:17] LABS: Anion Gap 10 mmol/L (10-20); BUN (Urea Nitrogen) 14 mg/dL (8.4-25.7); Calc. Creatinine Clearance 82 mL/min (70-130); Calcium 8.8 mg/dL (7.8-10.44); Carbon Dioxide 27 mmol/L (23-31); Chloride 108 mmol/L (98-107); Estimated GFR-MDRD Greater than 90; Glucose 112 mg/dL (83-110); Magnesium 2.1 mg/dL (1.6-2.6); Phosphorus 2.8 mg/dL (2.3-4.7); Potassium 4.2 mmol/L (3.5-5.1); Sodium 141 mmol/L (136-145)
[2018-10-28] MEDS: Acetaminophen 500 MG TAB PO SCH ×4 (06:51→23:59)
[2018-10-28] MEDS: Cyclobenzaprine 10 MG TAB PO PRN (06:51)
[2018-10-28] MEDS: Ibuprofen 600 MG TAB PO SCH ×3 (06:51→21:01)
[2018-10-28] MEDS ORDERED: PHOS-NAK 1 PKT PACK PO SCH (07:45)
[2018-10-28] MEDS: Polyethylene Glycol 3350 17 GM Packet PO SCH (08:55)
[2018-10-28] MEDS: Allopurinol 300 MG TAB PO SCH (08:56)
[2018-10-28] MEDS: Senokot S 8.6-50 MG TAB PO SCH ×2 (08:56→20:52)
[2018-10-28] MEDS: Tamsulosin HCl 0.4 MG CAP PO SCH (08:56)
[2018-10-28] MEDS: Aspirin 81 mg Enteric Coated Tablet PO SCH ×2 (08:56→20:52)
[2018-10-28] MEDS: Atorvastatin Calcium 10 MG TAB PO SCH (08:56)
[2018-10-28] MEDS: VERAPAMIL 180 MG PO SCH ×2 (08:57→17:27)
[2018-10-28] MEDS: cycloSPORINE 0.05% Ophthalmic Droperette EA EYE SCH ×2 (10:43→20:53)
[2018-10-28] MEDS: Alfuzosin 10 MG TABDR...ER PO SCH ×2 (10:43→20:52)
--- NOTE | 2018-10-28 15:30 | PRG ---
DATE OF SERVICE: 10/28/2018 SUBJECTIVE: The patient was seen this morning, sitting up in bed. He reported pain is well controlled and he slept well overnight. He did have his first small bowel movement yesterday. He was trying to void at the time of my evaluation. He is on his home medications for urinary retention at this time. OBJECTIVE: VITAL SIGNS: Temperature 98.1, pulse 99, respirations 16, oxygen saturation 95% on room air, and blood pressure 113/65. GENERAL: Well-appearing elderly male, lying in bed with no signs of acute distress. PULMONARY: Equal chest rise and fall. Clear breath sounds bilaterally. No signs of acute respiratory distress. CARDIAC: Regular rate and rhythm. No murmurs, gallops, or rubs. GI: Abdomen is soft, nontender, and nondistended. EXTREMITIES: 2+ pulses in all extremities. No significant swelling noted. Gross motor and sensation are intact. Mild tenderness to the left thigh. NEUROLOGIC: GCS is 15. Pupils are equal, round, and reactive to light bilaterally. LABORATORY FINDINGS: Sodium 141, potassium 4.2, chloride 108, carbon dioxide 27, BUN 14, creatinine 0.81, phosphorus 2.8, and magnesium 2.1. DIAGNOSTIC FINDINGS: There are no new diagnostic findings to discuss. ASSESSMENT: 1. Status post mechanical fall from standing. 2. Left intertrochanteric femur fracture, status post repair. 3. Hypophosphatemia, improved. 4. Acute traumatic pain, improved. 5. Hypotension, resolved. 6. History of hypertension, diverticulosis, osteoarthritis, gout, hyperlipidemia, asthma, and BPH. PLAN: We will continue current diet with Ensure as previously ordered. We will continue to replace electrolytes, which is phosphorus today and monitor closely. We have not restarted his home blood pressure medications today as his blood pressure is still not to its baseline. Continue to monitor fluids in voiding. DVT prophylaxis with 81 mg aspirin b.i.d. Work with Physical and Occupational Therapy. He will benefit greatly from placement at a rehab facility for both physical therapy needs as well as physician oversight for multiple medications especially antihypertensives need to be reassess daily. Continue close monitoring of pain management as well. Flexeril was increased overnight for increase left lower extremity spasms. The patient was discussed with Dr. Gutierrez before this dictation. Job ID: [id number]
[2018-10-28] MEDS: Melatonin 3 MG TAB PO SCH (20:52)
[2018-10-29] MEDS: traMADol HCl 50 MG TAB PO SCH ×4 (01:00→20:57)
[2018-10-29] MEDS: Ibuprofen 600 MG TAB PO SCH ×3 (06:18→21:05)
[2018-10-29] MEDS: Acetaminophen 500 MG TAB PO SCH ×3 (06:18→18:08)
[2018-10-29] MEDS: VERAPAMIL 180 MG PO SCH ×2 (08:58→17:44)
[2018-10-29] MEDS: Alfuzosin 10 MG TABDR...ER PO SCH ×2 (09:00→21:28)
[2018-10-29] MEDS: Aspirin 81 mg Enteric Coated Tablet PO SCH ×2 (09:00→21:04)
[2018-10-29] MEDS: Allopurinol 300 MG TAB PO SCH (09:00)
[2018-10-29] MEDS: Atorvastatin Calcium 10 MG TAB PO SCH (09:01)
[2018-10-29] MEDS: Tamsulosin HCl 0.4 MG CAP PO SCH (09:01)
[2018-10-29] MEDS: Senokot S 8.6-50 MG TAB PO SCH ×2 (09:01→21:05)
[2018-10-29] MEDS: Polyethylene Glycol 3350 17 GM Packet PO SCH (09:02)
[2018-10-29] MEDS: cycloSPORINE 0.05% Ophthalmic Droperette EA EYE SCH ×2 (14:40→21:28)
--- NOTE | 2018-10-29 14:45 | PRG ---
DATE OF SERVICE: 10/29/2018 SUBJECTIVE: The patient was seen this morning, sitting up in bed, reported pain was well controlled and he slept well overnight. He did have a bowel movement yesterday. He is voiding without difficulty. He is on most of his home medications and he is tolerating those well. He continues to work with Physical and Occupational Therapy. He denies nausea, vomiting, or diarrhea. OBJECTIVE: VITAL SIGNS: Temperature 98.7, pulse 69, respirations 18, oxygen saturation 95% on room air, and blood pressure 136/69. GENERAL: Well-appearing elderly male, lying in bed with no signs of acute distress. PULMONARY: Equal chest rise and fall. Clear breath sounds bilaterally. No signs of acute respiratory distress. CARDIAC: Regular rate and rhythm. No murmurs, gallops, or rubs. GI: Abdomen is soft, nontender, nondistended. EXTREMITIES: 2+ pulses in all extremities. No significant swelling noted. Gross motor and sensation are intact. Mild tenderness to the left thigh. NEUROLOGIC: GCS is 15. Pupils are equal, round, reactive to light bilaterally. LABORATORY FINDINGS: Sodium 141, potassium 4.2, chloride 108, carbon dioxide 27, BUN 14, creatinine 0.81, glucose 112, phosphorus 2.8, magnesium 2.1. DIAGNOSTIC FINDINGS: There are no new diagnostic findings to discuss. ASSESSMENT: 1. Status post mechanical fall from standing, left intertrochanteric femur fracture, status post repair. 2. Hypophosphatemia, stable. 3. Acute traumatic pain, improved. 4. Hypotension, resolved. 5. History of hypertension, diverticulosis, osteoarthritis, gout, hyperlipidemia, asthma, and BPH. PLAN: We will continue with the current diet and Ensure. We will continue to replace electrolytes including phosphorus today and monitor closely. We have not started his home blood pressure medications as they are not yet indicated. Continue to monitor voiding and bowel movements. DVT prophylaxis with 81 mg b.i.d. Continue physical and occupational therapy at this time. The patient will benefit greatly from placement at acute rehab for both physical therapy needs as well as physician oversights, especially in the setting of restarting multiple home medications and electrolyte imbalances. Continue close monitoring of pain management as well. The patient was seen and examined by Dr. Gutierrez this morning during morning rounds. Job ID: [id number]
[2018-10-29] MEDS: Melatonin 3 MG TAB PO SCH (21:05)
[2018-10-29] MEDS: Cyclobenzaprine 10 MG TAB PO PRN (21:29)
[2018-10-30] MEDS: Acetaminophen 500 MG TAB PO SCH ×4 (00:57→17:32)
[2018-10-30] MEDS: traMADol HCl 50 MG TAB PO SCH ×4 (01:00→21:00)
[2018-10-30] MEDS: Ibuprofen 600 MG TAB PO SCH ×3 (06:01→21:09)
[2018-10-30] MEDS ORDERED: PHOS-NAK 1 PKT PACK PO SCH (07:30)
[2018-10-30] MEDS: Polyethylene Glycol 3350 17 GM Packet PO SCH (07:58)
[2018-10-30] MEDS: Atorvastatin Calcium 10 MG TAB PO SCH (08:00)
[2018-10-30] MEDS: Tamsulosin HCl 0.4 MG CAP PO SCH (08:00)
[2018-10-30] MEDS: Senokot S 8.6-50 MG TAB PO SCH ×2 (08:00→21:09)
[2018-10-30] MEDS: Losartan 25 MG TAB PO SCH (08:00)
[2018-10-30] MEDS: VERAPAMIL 180 MG PO SCH ×2 (08:00→17:33)
[2018-10-30] MEDS: Aspirin 81 mg Enteric Coated Tablet PO SCH ×2 (08:00→21:09)
[2018-10-30] MEDS: Allopurinol 300 MG TAB PO SCH (08:01)
[2018-10-30] MEDS: cycloSPORINE 0.05% Ophthalmic Droperette EA EYE SCH ×2 (08:01→21:10)
[2018-10-30] MEDS: Alfuzosin 10 MG TABDR...ER PO SCH ×2 (09:00→21:09)
[2018-10-30] MEDS ORDERED: Bisacodyl 10 MG SUPP PR SCH (09:00)
[2018-10-30] MEDS: Bisacodyl 10 MG SUPP PR SCH (10:31)
[2018-10-30] MEDS ORDERED: Milk Of Magnesia 30 ML UDCUP PO SCH (11:15)
--- NOTE | 2018-10-30 14:19 | PRG ---
DATE OF SERVICE: 10/30/2018 SUBJECTIVE: The patient is an 87-year-old male, coming to evaluation of left hip pain after mechanical fall. The patient was operated on October 25, 2018, open reduction and internal fixation by Dr. Busby. The patient has been having uncomplicated postoperative. No overnight event. No fever or shortness of breath. The patient is on regular diet. Pain is well controlled. The patient has gastritis, DVT prophylaxis with Protonix and aspirin. OBJECTIVE: GENERAL: The patient is alert and oriented to person, place, and time. VITAL SIGNS: Temperature 97, pulse 100, O2 saturations 98% on room air, blood pressure 129/62. HEENT: Normocephalic and atraumatic. RESPIRATORY/CHEST: Chest expansion is equal. No wheezing. Breathing nonlabored. Breath sounds are clear bilaterally. CARDIOVASCULAR: Regular rate and rhythm. Heart sounds normal. Normal capillary fill throughout. ABDOMEN: Nontender. Bowel sounds are normal. No rebound. No guarding. EXTREMITY : nontender to touch, upper and lower extremities are neurovascularly intact. DIAGNOSES: Status post mechanical fall Left intertrochanteric femur fracture, postop left femur fracture, open reduction and internal fixation day 5, history of diverticulosis, osteoarthritis, gout, asthma, hypertension, BPH stable. PLAN: The patient's blood pressure is trending up. We will restart losartan today and continue to follow up his blood pressure. The patient is pending on rehab. Awaiting for insurance approval. Continue prophylaxis, gastritis, DVT, and better need to work with PT/OT to improve muscle strength and living functionality. Job ID: [id number] [facility]
[2018-10-30] MEDS: Melatonin 3 MG TAB PO SCH (21:09)
[2018-10-31] MEDS: Acetaminophen 500 MG TAB PO SCH ×5 (00:55→23:26)
--- NOTE | 2018-10-31 01:07 | PRG ---
DATE OF SERVICE: 10/31/2018 SUBJECTIVE: The patient remains on the surgical floor. He is status post ground level fall, which he sustained a left hip fracture. He has undergone open reduction and internal fixation of same. He tolerated the procedure well. He has currently been working with Physical and Occupational Therapy, and awaiting placement. The patient has not had a bowel movement during this hospital stay. He is on a bowel regimen to include milk of magnesia this morning with no results of thirst. OBJECTIVE: Vital signs are stable. The patient has been afebrile. At the time of my exam, the patient is resting comfortably. He was asleep. I did not awaken him for the exam. The nurses reported no issues. PLAN: Plan will be to add lactulose to his morning regimen. Continue physical and occupational therapy and await placement. Job ID: [id number]
[2018-10-31] MEDS: traMADol HCl 50 MG TAB PO SCH ×4 (01:21→20:58)
[2018-10-31] MEDS: Cyclobenzaprine 10 MG TAB PO PRN (01:22)
[2018-10-31 04:55] LABS: Anion Gap 11 mmol/L (10-20); BUN (Urea Nitrogen) 16 mg/dL (8.4-25.7); Calc. Creatinine Clearance 70 mL/min (70-130); Calcium 9.2 mg/dL (7.8-10.44); Carbon Dioxide 29 mmol/L (23-31); Chloride 104 mmol/L (98-107); Estimated GFR-MDRD 77; Glucose 89 mg/dL (83-110); Magnesium 1.9 mg/dL (1.6-2.6); Phosphorus 3.8 mg/dL (2.3-4.7); Potassium 4.7 mmol/L (3.5-5.1); Sodium 139 mmol/L (136-145)
[2018-10-31] MEDS: Ibuprofen 600 MG TAB PO SCH ×3 (05:30→22:05)
[2018-10-31] MEDS: Losartan 25 MG TAB PO SCH (08:39)
[2018-10-31] MEDS: Polyethylene Glycol 3350 17 GM Packet PO SCH (08:39)
[2018-10-31] MEDS: Aspirin 81 mg Enteric Coated Tablet PO SCH ×2 (08:40→20:58)
[2018-10-31] MEDS: Hydrochlorothiazide 25 MG TAB PO SCH (08:40)
[2018-10-31] MEDS: Tamsulosin HCl 0.4 MG CAP PO SCH (08:40)
[2018-10-31] MEDS: Senokot S 8.6-50 MG TAB PO SCH ×2 (08:40→20:58)
[2018-10-31] MEDS: Allopurinol 300 MG TAB PO SCH (08:40)
[2018-10-31] MEDS: Atorvastatin Calcium 10 MG TAB PO SCH (08:40)
[2018-10-31] MEDS: Bisacodyl 10 MG SUPP PR SCH (08:41)
[2018-10-31] MEDS: VERAPAMIL 180 MG PO SCH ×2 (08:41→17:13)
[2018-10-31] MEDS: cycloSPORINE 0.05% Ophthalmic Droperette EA EYE SCH ×2 (10:25→22:05)
[2018-10-31] MEDS: Alfuzosin 10 MG TABDR...ER PO SCH ×2 (10:25→20:58)
--- NOTE | 2018-10-31 15:29 | PRG ---
DATE OF SERVICE: 10/31/2018 SUBJECTIVE: This is an 88-year-old male, coming to evaluation of left hip pain after a mechanical fall. The patient was diagnosed with left intertrochanteric femur fracture. He underwent open reduction and internal fixation of left hip. The patient underwent a relative uncomplicated postop. He developed no fever or shortness of breath. No overnight event last night. The patient tolerated with regular diet. The patient is able to work with PT/OT and mobilized well. The patient is waiting for insurance authorization for rehab placement. Restart home medication hydrochlorothiazide due to his blood pressure around 140 to 150 systolic. OBJECTIVE: GENERAL: The patient is alert and oriented x3. No sign of acute distress. VITAL SIGNS: Temperature 97, heart rate 75, respiratory rate 18, O2 saturations 97 on room air, and blood pressure 156/71. RESPIRATORY: Lungs clear bilaterally. HEART: Regular rate and rhythm. ABDOMEN: Soft and nondistended. EXTREMITIES: Neurovascularly intact x4. IMPRESSION: 1. Status post ground level fall. 2. Left intertrochanteric femur fracture, postop left intertrochanteric femur fracture, open reduction and internal fixation with hip screw fixation. 3. History of diverticulosis. 4. Osteoarthritis. 5. Gout. 6. Hypertension. 7. Asthma. 8. Benign prostatic hyperplasia, stable. PLAN: The patient is doing well postop ORIF from a left femur fracture. He developed no complication at this time. Continue prophylaxis, gastritis, and DVT. Continue supportive care and PT/OT. Awaiting for insurance authorization on acute rehab facility placement. He might be able to go tomorrow. Job ID: [id number]
[2018-10-31] MEDS: Melatonin 3 MG TAB PO SCH (20:58)
--- NOTE | 2018-10-31 23:48 | PRG ---
DATE OF SERVICE: 10/31/2018 SUBJECTIVE: The patient remains on the surgical floor. He is status post a ground level fall, in which he sustained his left hip fracture. He has undergone surgical procedures for this and he has tolerated well. He has been working with Physical and Occupational Therapy and is currently awaiting rehab screening and decision. Otherwise, the patient stated he is doing well. He states that he had a large bowel movement today and feels much better after this. His pain is controlled and he is tolerating a diet. PHYSICAL EXAMINATION: VITAL SIGNS: Stable. The patient is afebrile. GENERAL: The patient is resting comfortably in bed. He is awake, alert, conversant, has no complaints. There is no distress. ASSESSMENT: 1. Status post ground level fall. 2. Status post open reduction and internal fixation of left hip fracture. PLAN: Plan will be to continue his supportive care and await for final placement decision. Job ID: [id number]
[2018-11-01] MEDS: traMADol HCl 50 MG TAB PO SCH ×4 (02:28→20:39)
[2018-11-01] MEDS: Ibuprofen 600 MG TAB PO SCH ×3 (05:49→21:11)
[2018-11-01] MEDS: Acetaminophen 500 MG TAB PO SCH ×4 (05:49→23:31)
[2018-11-01] MEDS: VERAPAMIL 180 MG PO SCH ×2 (08:21→18:05)
[2018-11-01] MEDS: Losartan 25 MG TAB PO SCH (08:23)
[2018-11-01] MEDS: Atorvastatin Calcium 10 MG TAB PO SCH (08:24)
[2018-11-01] MEDS: Senokot S 8.6-50 MG TAB PO SCH ×2 (08:24→20:27)
[2018-11-01] MEDS: Tamsulosin HCl 0.4 MG CAP PO SCH (08:24)
[2018-11-01] MEDS: Allopurinol 300 MG TAB PO SCH (08:24)
[2018-11-01] MEDS: Aspirin 81 mg Enteric Coated Tablet PO SCH ×2 (08:25→20:28)
[2018-11-01] MEDS: Polyethylene Glycol 3350 17 GM Packet PO SCH (08:25)
[2018-11-01] MEDS: cycloSPORINE 0.05% Ophthalmic Droperette EA EYE SCH ×2 (08:25→21:46)
[2018-11-01] MEDS: Hydrochlorothiazide 25 MG TAB PO SCH (08:26)
[2018-11-01] MEDS: Bisacodyl 10 MG SUPP PR SCH (08:27)
[2018-11-01] MEDS: Alfuzosin 10 MG TABDR...ER PO SCH ×2 (08:29→20:27)
[2018-11-01] MEDS ORDERED: Milk Of Magnesia 30 ML UDCUP PO SCH (09:00)
--- NOTE | 2018-11-01 17:32 | PRG ---
DATE OF SERVICE: 11/01/2018 SUBJECTIVE: This is an 88-year-old male, coming to evaluation of left hip pain after mechanical fall at home. The patient underwent open reduction and internal fixation of the left intertrochanteric femur fracture on October 25. Postop, the patient is doing well, pain is well controlled, he is able to tolerate regular diet. He is working with PT/OT. He is able to walk with assistance from a walker. No overnight events. Pain is well controlled. Vital signs are stable. The patient is pending on rehab. OBJECTIVE: GENERAL: The patient is alert and oriented x3. VITAL SIGNS: Temperature 98, heart rate 65, respiratory rate 16, O2 saturation 95% on room, and blood pressure 128/66. LUNGS: Clear bilaterally. CARDIAC: Regular rate and rhythm. ABDOMEN: Soft and nondistended. Bowel sounds normal. EXTREMITIES: Neurovascularly intact. No edema. IMPRESSION: 1. Status post mechanical fall. 2. Left intertrochanteric femur fracture, postop open reduction and internal fixation of left intertrochanteric femur fracture, day #7. 3. History of diverticulosis. 4. Osteoarthritis. 5. Gout. 6. Asthma. 7. Hypertension. 8. Benign prostatic hyperplasia. PLAN: Continue supportive care. Continue gastritis and DVT prophylaxis. Continue working with PT/OT and working with Insurance for rehab facility placement. Job ID: [id number] MTDD
[2018-11-01] MEDS: Melatonin 3 MG TAB PO SCH (20:28)
[2018-11-01] MEDS: Cyclobenzaprine 10 MG TAB PO PRN (21:11)
--- NOTE | 2018-11-01 23:47 | PRG ---
DATE OF SERVICE: SUBJECTIVE: The patient remains on the surgical floor. He is status post ground-level fall, in which he sustained a left hip fracture, for which he has undergone operative procedure for the same. He tolerated that well. He has been working with Physical and Occupational Therapy and was awaiting rehab decision. Unfortunately, insurance has declined his rehab placement so the Day Team is currently working on it. The peer to see if we can get this overturned, and if not, the patient will likely need a swing bed or skilled facility. Otherwise, the patient has no complaints. He is doing well. Bowel function has returned. He is tolerating a diet. His pain is controlled. PHYSICAL EXAMINATION: VITAL SIGNS: Stable. The patient is afebrile. GENERAL: The patient is resting comfortably. He appears in no distress and has no complaints. ASSESSMENT/PLAN: 1. Status post ground-level fall. 2. Status post open reduction and internal fixation of left hip fracture. PLAN: Plan will be to continue supportive care, work with Physical and Occupational Therapy, and await final placement decision. Job ID: [id number]
[2018-11-02] MEDS: traMADol HCl 50 MG TAB PO SCH ×4 (01:30→20:52)
[2018-11-02] MEDS: Acetaminophen 500 MG TAB PO SCH ×4 (05:59→23:14)
[2018-11-02] MEDS: Ibuprofen 600 MG TAB PO SCH ×3 (05:59→21:53)
[2018-11-02] MEDS: Polyethylene Glycol 3350 17 GM Packet PO SCH (08:32)
[2018-11-02] MEDS: Losartan 25 MG TAB PO SCH (08:32)
[2018-11-02] MEDS: Senokot S 8.6-50 MG TAB PO SCH ×2 (08:32→20:51)
[2018-11-02] MEDS: Aspirin 81 mg Enteric Coated Tablet PO SCH ×2 (08:33→20:52)
[2018-11-02] MEDS: Allopurinol 300 MG TAB PO SCH (08:33)
[2018-11-02] MEDS: Hydrochlorothiazide 25 MG TAB PO SCH (08:33)
[2018-11-02] MEDS: cycloSPORINE 0.05% Ophthalmic Droperette EA EYE SCH ×2 (08:34→20:53)
[2018-11-02] MEDS: Atorvastatin Calcium 10 MG TAB PO SCH (08:34)
[2018-11-02] MEDS: Alfuzosin 10 MG TABDR...ER PO SCH ×2 (08:34→20:51)
[2018-11-02] MEDS: Tamsulosin HCl 0.4 MG CAP PO SCH (08:34)
[2018-11-02] MEDS: VERAPAMIL 180 MG PO SCH ×2 (08:38→17:15)
[2018-11-02] MEDS: Bisacodyl 10 MG SUPP PR SCH ×2 (09:15→17:16)
--- NOTE | 2018-11-02 18:37 | PRG ---
DATE OF SERVICE: 11/02/2018 SUBJECTIVE: Mr. Justice is an 88-year-old man, who is eight days status post left intertrochanteric femur fracture hip screw. The patient is awake and alert today reporting adequate pain control. He is participating with Physical Therapy, ambulating approximately 200 feet today with modest assistance. He has been denied inpatient rehabilitation. The patient is tolerating general diet, having normal bowel and urinary function. He is not quite steady nevertheless with self-care including bathroom hygiene. OBJECTIVE: VITAL SIGNS: Today include blood pressure 136/88, pulse 90, respiratory rate 16, temperature 98.2 degrees Fahrenheit, and oxygen saturation 98% on room air. HEART: Reveals regular rate and rhythm. LUNGS: Clear to auscultation bilaterally. Breathing, regular and nonlabored. ABDOMEN: Soft, nontender, and nondistended. NEUROLOGIC: Reveals no focal deficits present. IMPRESSION: Postoperative day #8 status post open reduction and internal fixation of hip fracture. The patient is hemodynamically stable and hopefully will be discharged to swing bed soon as the insurance authorization is secured. Job ID: [id number]
[2018-11-02] MEDS: Melatonin 3 MG TAB PO SCH (20:52)
[2018-11-02] MEDS: Cyclobenzaprine 10 MG TAB PO PRN (20:57)
--- NOTE | 2018-11-03 01:00 | PRG ---
DATE OF SERVICE: SUBJECTIVE: The patient remains on the surgical floor. He is awaiting placement after a ground-level fall, in which he sustained a left hip fracture and had undergone open reduction and internal fixation for the same. Unfortunately, today it appeared the insurance still declined rehab placement, so alternatively, plan will be to discuss swing bed/shelter facility placement. Otherwise, the patient is doing well. He has no complaints. He continues to progress with physical and occupational therapy. He is tolerating a diet. His bowel function has returned. His pain is controlled. PHYSICAL EXAMINATION: VITAL SIGNS: Stable. The patient is afebrile. GENERAL: The patient is resting comfortably. He at the time of my exam transitioned himself from the bed to his chair with minimal assistance from the nurse. ASSESSMENT/PLAN: 1. Status post ground-level fall. 2. Status post open reduction and internal fixation of left hip fracture. Plan will be to continue supportive care, physical and occupational therapy, and await placement decision. Job ID: [id number]
[2018-11-03] MEDS: traMADol HCl 50 MG TAB PO SCH ×4 (02:29→20:17)
[2018-11-03] MEDS: Ibuprofen 600 MG TAB PO SCH ×3 (05:32→21:35)
[2018-11-03] MEDS: Acetaminophen 500 MG TAB PO SCH ×3 (05:32→17:26)
[2018-11-03] MEDS: Hydrochlorothiazide 25 MG TAB PO SCH (08:42)
[2018-11-03] MEDS: Aspirin 81 mg Enteric Coated Tablet PO SCH ×2 (08:42→20:18)
[2018-11-03] MEDS: VERAPAMIL 180 MG PO SCH ×2 (08:42→17:26)
[2018-11-03] MEDS: Senokot S 8.6-50 MG TAB PO SCH ×2 (08:43→20:18)
[2018-11-03] MEDS: Allopurinol 300 MG TAB PO SCH (08:43)
[2018-11-03] MEDS: Losartan 25 MG TAB PO SCH (08:43)
[2018-11-03] MEDS: Tamsulosin HCl 0.4 MG CAP PO SCH (08:44)
[2018-11-03] MEDS: Atorvastatin Calcium 10 MG TAB PO SCH (08:44)
[2018-11-03] MEDS: Bisacodyl 10 MG SUPP PR SCH (08:44)
[2018-11-03] MEDS: Alfuzosin 10 MG TABDR...ER PO SCH ×2 (08:44→20:17)
[2018-11-03] MEDS: Polyethylene Glycol 3350 17 GM Packet PO SCH (08:45)
[2018-11-03] MEDS: cycloSPORINE 0.05% Ophthalmic Droperette EA EYE SCH ×2 (08:45→20:18)
--- NOTE | 2018-11-03 16:03 | PRG ---
DATE OF SERVICE: 11/03/2018 This is Tre Rivas PA-C dictating a report for Farshad Gutierrez DO. SUBJECTIVE: This is an 88 years old gentleman who is 9 days status post left intertrochanteric femur fracture. No overnight event. The patient is able to work with PT/OT, pain is well controlled. The patient has been denied inpatient rehabilitation. He was working with pillowcase maker for him to have placement in swing bed, awaiting for insurance authorization. OBJECTIVE: VITAL SIGNS: Blood pressure 115/69, temperature 98, heart rate 99, respiratory rate is 16, O2 saturation 98 on room air. LUNGS: Clear bilaterally. HEART: Regular rate and rhythm. ABDOMEN: Soft, nondistended. EXTREMITIES: Neurovascularly intact. NEUROLOGICAL: No focal deficits. DIAGNOSES: 1. Status post fall. 2. Status post open reduction and internal fixation of left hip fracture. PLAN: 1. Continue supportive care. 2. Continue gastritis, DVT prophylaxis. 3. Continue working with pillowcase maker for his placement in medicine swing bed facility. Waiting for insurance authorization. Job ID: [id number] MTDD
[2018-11-03] MEDS: Melatonin 3 MG TAB PO SCH (21:36)
[2018-11-03] MEDS: Cyclobenzaprine 10 MG TAB PO PRN (21:45)
[2018-11-04] MEDS: traMADol HCl 50 MG TAB PO SCH ×4 (01:20→21:29)
--- NOTE | 2018-11-04 01:20 | PRG ---
DATE OF SERVICE: 11/04/2018 SUBJECTIVE: The patient remains on the surgical floor. He is hospital day 9, status post a fall in which he sustained a left hip fracture. The patient has undergone repair of this. He has been progressing with physical and occupational therapy. Unfortunately, due to insurance he has denied rehab placement, and we are attempting to get him to a swing bed facility. The patient is making remarkable progress, yet is still not safe to be at home with his elderly . PHYSICAL EXAMINATION: Vital signs are stable. The patient remains afebrile. Physical exam remains unchanged. ASSESSMENT: 1. Status post ground level fall, hospital day 9. 2. Status post open reduction and internal fixation of left hip fracture, postop day 8. PLAN: Plan will be to continue physical and occupational therapy and await final authorization placement. Job ID: [id number]
[2018-11-04] MEDS: Acetaminophen 500 MG TAB PO SCH ×5 (01:21→23:53)
[2018-11-04] MEDS: Ibuprofen 600 MG TAB PO SCH ×3 (06:01→21:30)
[2018-11-04] MEDS: VERAPAMIL 180 MG PO SCH ×2 (07:54→17:47)
[2018-11-04] MEDS: Allopurinol 300 MG TAB PO SCH (08:44)
[2018-11-04] MEDS: Senokot S 8.6-50 MG TAB PO SCH ×2 (08:44→21:31)
[2018-11-04] MEDS: Atorvastatin Calcium 10 MG TAB PO SCH (08:44)
[2018-11-04] MEDS: Hydrochlorothiazide 25 MG TAB PO SCH (08:44)
[2018-11-04] MEDS: Tamsulosin HCl 0.4 MG CAP PO SCH (08:44)
[2018-11-04] MEDS: Aspirin 81 mg Enteric Coated Tablet PO SCH ×2 (08:44→21:30)
[2018-11-04] MEDS: Losartan 25 MG TAB PO SCH (08:44)
[2018-11-04] MEDS: Polyethylene Glycol 3350 17 GM Packet PO SCH (08:46)
[2018-11-04] MEDS: Alfuzosin 10 MG TABDR...ER PO SCH ×2 (08:51→21:31)
[2018-11-04] MEDS: Bisacodyl 10 MG SUPP PR SCH (08:58)
[2018-11-04] MEDS: cycloSPORINE 0.05% Ophthalmic Droperette EA EYE SCH ×2 (11:23→21:32)
--- NOTE | 2018-11-04 14:10 | PRG ---
DATE OF SERVICE: 11/04/2018 SUBJECTIVE: This is an 88-year-old gentleman, who is 10 days status post left intratrochanteric femur fracture. No overnight event. The patient is able to work with PT/OT. Pain is well controlled. The patient is waiting for approval from insurance for placement in swing bed. The patient is able to tolerate regular diet. He mobilizes well with assist. OBJECTIVE: VITAL SIGNS: Blood pressure 120/70, temperature 98, heart rate 90, respiratory rate is 16, and O2 saturation 98% on room air. LUNGS: Clear bilaterally. HEART: Regular rate and rhythm. ABDOMEN: Soft and nondistended. Bowel sounds are normal. EXTREMITIES: Neurovascularly intact. Muscle strength normal x4. NEUROLOGICAL: No focal neuro deficits. DIAGNOSES: 1. Status post fall. 2. Status post open reduction and internal fixation of left hip fracture. PLAN: 1. Continue supportive care. 2. Continue gastritis, DVT prophylaxis, and pulmonary toilet. 3. Continue working nurse outreach case manager for his placement in [facility]. Waiting for insurance authorization. Patient was seen and discussed with Dr Gutierrez on round this morning Job ID: [id number] MTDD
[2018-11-04] MEDS ORDERED: traMADol HCl 50 MG TAB PO PRN (15:06)
[2018-11-04] MEDS: Melatonin 3 MG TAB PO SCH (21:30)
[2018-11-04] MEDS: Cyclobenzaprine 10 MG TAB PO PRN (21:31)
--- NOTE | 2018-11-05 01:58 | PRG ---
DATE OF SERVICE: 11/05/2018 SUBJECTIVE: The patient remains on the surgical floor. He is status post ground level fall, when he sustained a left hip fracture, which he has undergone repair for. Reportedly due to insurance denial, the patient remains with us as he was denied for inpatient rehab placement. Case Management is working to get him into a swing bed facility in [place]. Otherwise, the patient's pain is controlled. He is tolerating a diet, and he is continuing to progress with physical therapy. OBJECTIVE: VITAL SIGNS: Stable. The patient is afebrile. GENERAL: The patient is in no distress. Appears comfortable. ASSESSMENT: 1. Status post ground level fall. 2. Status post open reduction and internal fixation of left hip fracture. PLAN: Plan will be to continue supportive care and await final placement decision. Job ID: [id number]
[2018-11-05] MEDS: traMADol HCl 50 MG TAB PO SCH ×4 (03:25→21:07)
[2018-11-05] MEDS: Acetaminophen 500 MG TAB PO SCH ×4 (05:32→23:51)
[2018-11-05] MEDS: Ibuprofen 600 MG TAB PO SCH ×3 (05:32→21:03)
[2018-11-05] MEDS: VERAPAMIL 180 MG PO SCH ×2 (08:04→18:31)
[2018-11-05] MEDS: Tamsulosin HCl 0.4 MG CAP PO SCH (08:06)
[2018-11-05] MEDS: Aspirin 81 mg Enteric Coated Tablet PO SCH ×2 (08:06→21:03)
[2018-11-05] MEDS: Hydrochlorothiazide 25 MG TAB PO SCH (08:06)
[2018-11-05] MEDS: Losartan 25 MG TAB PO SCH (08:06)
[2018-11-05] MEDS: Atorvastatin Calcium 10 MG TAB PO SCH (08:07)
[2018-11-05] MEDS: Allopurinol 300 MG TAB PO SCH (08:08)
[2018-11-05] MEDS: Senokot S 8.6-50 MG TAB PO SCH ×2 (08:08→21:03)
[2018-11-05] MEDS: Polyethylene Glycol 3350 17 GM Packet PO SCH (08:08)
[2018-11-05] MEDS: Bisacodyl 10 MG SUPP PR SCH (08:09)
[2018-11-05] MEDS: Alfuzosin 10 MG TABDR...ER PO SCH ×2 (08:16→21:29)
[2018-11-05] MEDS: cycloSPORINE 0.05% Ophthalmic Droperette EA EYE SCH ×2 (11:38→21:04)
--- NOTE | 2018-11-05 13:16 | PRG ---
DATE OF SERVICE: 11/05/2018 SUBJECTIVE: This is an 88-year-old gentleman, who is 11 days status post left intertrochanteric femur fracture. No overnight event. The patient is able to work with PT/OT. Pain is well control. The patient is waiting for approval from insurance for placement in swing bed. OBJECTIVE: VITAL SIGNS: Temperature 97.9, heart rate 89, respiratory rate 18, O2 sats 94% on room air, and blood pressure 108/61. GENERAL: The patient is alert and oriented x3. LUNGS: Clear bilaterally. HEART: Regular rate and rhythm. ABDOMEN: Soft, nondistended. Bowel sounds normal. EXTREMITIES: Neurovascularly intact. Muscle strength normal x4. NEUROLOGIC: No focal neuro deficits. DIAGNOSES: 1. Status post fall. 2. Status post open reduction and internal fixation of left hip fracture. PLAN: Continue supportive care. Continue gastritis and DVT prophylaxes and pulmonary toilet. Continue to work with case management specialist for his placement in [facility], waiting for insurance authorization. The patient was seen and discussed with Dr. Gutierrez on rounds this morning. Job ID: [id number]
--- NOTE | 2018-11-05 15:52 | DIS ---
DATE OF ADMISSION: 10/25/2018 DATE OF DISCHARGE: 11/08/2018 ADMISSION DIAGNOSES: 1. Status post fall. 2. Left hip fracture. DISCHARGE DIAGNOSES: 1. Status post ground-level fall. 2. Status post open reduction and internal fixation of left hip fracture. PROCEDURE PERFORMED: Open reduction and internal fixation of left hip fracture. HOSPITAL COURSE: This is an 88-year-old gentleman, who is 11 day status post left intertrochanteric femur fracture. The patient experienced uncomplicated postop course. The patient developed no fever or shortness of breath. He makes good urine. He is able to tolerate regular diet. His bowel regimen is normal. The patient had been waiting for placement and he has been accepted to go to [facility] by insurance today. DISCHARGE DISPOSITION: [facility]. DISCHARGE CONDITION: Satisfactory. PHYSICAL EXAMINATION: VITAL SIGNS: Blood pressure 120/70, temperature 98, heart rate 90, respiratory rate 16, O2 saturations 98% on room air. GENERAL: The patient is alert and oriented, in no acute distress. LUNGS: Clear bilaterally. HEART: Regular rate and rhythm. ABDOMEN: Soft, nondistended. Bowel sounds normal. EXTREMITIES: Neurovascularly intact. Muscle strength normal x4. NEUROLOGIC: No focal neuro deficits. DISCHARGE PLAN INSTRUCTIONS: The patient is to continue care with PT/OT and [facility]. The patient is instructed to be cautious in fall prevention. The patient needs to take medications as directed. The patient needs to follow up with Dr. Lyle Busby. The patient needs to follow up with Dr. Gutierrez as needed. The patient needs to follow up with primary provider, Dr. Pratik Mendoza. Job ID: [id number] [facility]
[2018-11-05] MEDS: Melatonin 3 MG TAB PO SCH (21:03)
[2018-11-05] MEDS: Cyclobenzaprine 10 MG TAB PO PRN (21:29)
--- NOTE | 2018-11-06 01:08 | PRG ---
DATE OF SERVICE: 11/06/2018 SUBJECTIVE: The patient remains on surgical floor. He is status post ground level fall, which he sustained a left hip fracture and has undergone open reduction and internal fixation of the same. The patient has been waiting patiently for a placement decision, which I am told came through today for swing bed, but the patient what seems to be out of frustration, has decided that he would rather just be discharged home. The patient is working with Physical and Occupational Therapy and has progressed to walking several 100 feet with his walker. The patient's pain is controlled, he is tolerating a diet. His bowel function has returned. OBJECTIVE: VITAL SIGNS: Stable. The patient remains afebrile. GENERAL: The patient is resting comfortably. He appears in no distress. ASSESSMENT/PLAN: 1. Status post ground level fall. 2. Status post open reduction and internal fixation of left hip fracture. PLAN: Plan will be to continue supportive care per his conversation with Case Management. He would like to be discharged home on Monday. We will discuss with Case Management if and what home therapies are available for the patient. Job ID: [id number]
[2018-11-06] MEDS: traMADol HCl 50 MG TAB PO SCH ×4 (02:58→22:00)
[2018-11-06] MEDS: Acetaminophen 500 MG TAB PO SCH ×3 (05:56→18:56)
[2018-11-06] MEDS: Ibuprofen 600 MG TAB PO SCH ×2 (05:56→14:56)
[2018-11-06] MEDS: VERAPAMIL 180 MG PO SCH ×2 (09:36→17:29)
[2018-11-06] MEDS: Atorvastatin Calcium 10 MG TAB PO SCH (10:23)
[2018-11-06] MEDS: Tamsulosin HCl 0.4 MG CAP PO SCH (10:23)
[2018-11-06] MEDS: Allopurinol 300 MG TAB PO SCH (10:25)
[2018-11-06] MEDS: Alfuzosin 10 MG TABDR...ER PO SCH ×2 (10:28→22:00)
[2018-11-06] MEDS: Aspirin 81 mg Enteric Coated Tablet PO SCH (10:28)
[2018-11-06] MEDS: Bisacodyl 10 MG SUPP PR SCH (10:28)
[2018-11-06] MEDS: Hydrochlorothiazide 25 MG TAB PO SCH (10:29)
[2018-11-06] MEDS: Losartan 25 MG TAB PO SCH (10:29)
[2018-11-06] MEDS: Senokot S 8.6-50 MG TAB PO SCH ×2 (10:30→22:00)
[2018-11-06] MEDS: Polyethylene Glycol 3350 17 GM Packet PO SCH (10:30)
[2018-11-06] MEDS: cycloSPORINE 0.05% Ophthalmic Droperette EA EYE SCH ×2 (14:02→22:00)
--- NOTE | 2018-11-06 14:37 | PRG ---
DATE OF SERVICE: 11/06/2018 SUBJECTIVE: The patient remains on the surgical floor. He is status post ground level fall when he sustained a left hip fracture and undergone open reduction and internal fixation of the same. The patient states that he had bright-red blood in his bowel movement this morning. Otherwise, he has had no change. He still desires to be discharged home tomorrow with Home Health and a walker. The patient per review of records was noted to have prior colonoscopy that revealed multiple diverticulum consistent with diverticulosis. The patient has no abdominal pain at this time. No nausea or vomiting. The patient is tolerating a diet. His pain is controlled. He is working with Physical and Occupational Therapy. OBJECTIVE: VITAL SIGNS: Temperature is 97.9, heart rate 87, blood pressure 111/71, respirations 18, oxygen saturation 97% on room air. GENERAL: The patient is resting comfortably in bed. He is awake, alert, and oriented x3. [place] Coma Scale is 15. HEENT: Unremarkable. LUNGS: Clear to auscultation with good inspiratory and expiratory effort. HEART: Regular rate and rhythm. ABDOMEN: Soft, flat, nontender with active bowel sounds. EXTREMITIES: Neurovascularly intact x4. LABORATORY AND DIAGNOSTIC DATA: There are no labs or radiographs to review. ASSESSMENT: 1. Status post ground level fall. 2. Status post open reduction and internal fixation of left hip fracture. 3. Bright-red blood per rectum, history of diverticulosis. PLAN: Plan will be to continue supportive care. We will obtain hemoglobin and hematocrit in the morning. Continue his pain control, pulmonary toilet, gastritis and mechanical VTE prophylaxis. We will hold his ibuprofen for now. Case Management is working on home health and obtaining a walker for him. The evaluation, examination, laboratory, and radiographic findings were done with Dr. Gutierrez this morning during rounds. Job ID: [id number]
[2018-11-06 16:59] LABS: Hemoglobin 9.3 g/dL (14.0-18.0); Mean Corpuscular HGB CONC 32.9 g/dL (32.0-36.0); Mean Corpuscular Hemoglobin 30.5 pg (27.0-31.0); Mean Corpuscular Volume 92.7 fL (78.0-98.0); Mean Platelet Volume 8.8 fL (7.4-10.4); Platelet Count 272 thou/uL (130-400); RBC Distribution Width 15.7 % (11.5-14.5); Red Blood Cell (RBC) Count 3.03 mill/uL (4.70-6.10); White Blood Cell (WBC) Count 10.8 thou/uL (4.8-10.8)
--- NOTE | 2018-11-06 19:31 | CON ---
DATE OF CONSULTATION: 11/06/2018 CHIEF COMPLAINT: Blood in the stool. HISTORY OF PRESENT ILLNESS: Mr. Justice was admitted through the emergency room with a fall at home and broken hip, for which he underwent fixation with a hip screw for his left hip on 10/25/2018. He has been working with Physical Therapy and ultimately the plan was to discharge home; however, today developed multiple red bloody stools. He had so far today 6 red bloody stools in all. He has had no abdominal pain, nausea, vomiting, diarrhea, or constipation otherwise leading up to this. He has been taking ibuprofen 600 mg q.8 hours scheduled, he has also been on pantoprazole 40 mg daily scheduled. He has been on aspirin 81 mg twice daily as well. He has had lower GI bleed secondary to diverticulosis a couple of times in the past. His most recent colonoscopy was on June 11, 2016, here in the hospital by Dr. Alan. He had 3 hyperplastic colon polyps removed. He was noted to have prominent sigmoid diverticulosis and internal hemorrhoids. He has had prior diverticular bleeding in the past as well. He has no abdominal pain or nausea or vomiting now. No dizziness or lightheadedness. However, he is feeling a little weaker today than he had been. PAST MEDICAL HISTORY: 1. Diverticulosis with diverticular bleeding in the past. 2. Gout. 3. Osteoarthritis. 4. Hyperlipidemia. 5. Asthma. 6. Hypertension. 7. BPH. PAST SURGICAL HISTORY: 1. Right hip replacement. 2. Back surgery. 3. Knee replacement. 4. Inguinal hernia repair. FAMILY HISTORY: Negative for GI malignancies. SOCIAL HISTORY: No alcohol, tobacco, or drugs. ALLERGIES: CODEINE, LORAZEPAM, AMBIEN, DARVOCET. MEDICATIONS: Current inpatient medications include; 1. Acetaminophen. 2. Alfuzosin. 3. Allopurinol. 4. Vitamin C. 5. Aspirin 81 mg twice daily. 6. Atorvastatin. 7. Bisacodyl 10 mg per rectum daily schedule. 8. Cyclosporine eye drops. 9. Ferrous sulfate. 10. Hydrochlorothiazide. 11. Ibuprofen 600 mg q.8 hours. 12. Losartan. 13. Melatonin. 14. Pantoprazole 40 mg daily. 15. Polyethylene glycol daily. 16. Tamsulosin. 17. Senna with docusate scheduled 2 tablets b.i.d. 18. Verapamil. REVIEW OF SYSTEMS: Negative x10 systems reviewed except as stated in history of present illness. PHYSICAL EXAMINATION: VITAL SIGNS: Temperature 97.9; pulse 111, prior to this afternoon, his pulse has been running in the 80s to 90s; blood pressure 112/70. GENERAL: He is in no acute distress. He is pale. Alert and oriented x3. LUNGS: Clear to auscultation bilaterally. HEART: Tachycardic. S1, S2 without murmur. ABDOMEN: Soft, nontender, and nondistended. Bowel sounds are present. EXTREMITIES: No lower extremity edema. Cranial nerves are grossly intact. RECTAL: Reveals dark red stool in the rectal vault. LABORATORY DATA: White blood cell count 7.2, hemoglobin 9.7, platelets 144. INR 1.1. Creatinine 0.93, albumin 3.8. IMPRESSION: 1. Acute GI bleed. He is passing dark red blood, most likely secondary to recurrent diverticular bleeding. He has had multiple diverticular bleeds in the past. His baseline hemoglobin had been running around 12, and yesterday and today, it is closer to 9.7. His pulse is increased this afternoon. I will recheck hemoglobin to monitor the trend now. He has been on scheduled ibuprofen 600 mg 3 times a day and aspirin 81 mg twice daily. A more rapid upper gastrointestinal bleed is also possible; however, he has also been on scheduled proton-pump inhibitor. 2. Anemia of acute blood loss. 3. History of diverticulosis with diverticular bleeding. He just had colonoscopy in June 2016, which showed sigmoid diverticulosis and 3 hyperplastic polyps removed. RECOMMENDATIONS: 1. Repeat colonoscopy is likely to be of low yield at this point. If this is a diverticular bleed, the primary treatment will be avoidance of the NSAIDs and aspirin and allow time for this to clot itself off. If he continues bleeding, then the next step will be a nuclear medicine abdominal bleeding scan to see if the bleeding site can be more localized. If he shows signs of more rapid bleeding, then upper endoscopy can be performed to rule out a peptic ulcer. 2. Continue proton pump inhibitor. We will change this to IV administration twice daily for now. 3. I will discontinue the aspirin and ibuprofen. Also hold the iron for now as this could make bowel prep more difficult if it becomes necessary. 4. Clear liquid diet. Job ID: [id number]
--- NOTE | 2018-11-06 21:46 | NM ---
NUCLEAR MEDICINE GI BLEEDING SCAN: 11/06/2018 HISTORY: GI bleeding. History of diverticulosis. COMPARISON: None. TECHNIQUE: Anterior planar imaging of the abdomen was obtained over 60 minutes, following the intravenous admini stration of 30.1 millicuries of technetium 99m labeled tagged red blood cells. FINDINGS: There is abnormal radiotracer activity noted within the midline abdomen, consistent with active GI bl eeding. This increases with time, intensity, and volume. It appears to curve to the left in the mid abdomen and then extend into the region of the pelvis. The configuration favors colon over small clara wel bleeding. IMPRESSION: Positive gastrointestinal bleeding scan, as detailed above. Dr. Bee made aware, via phone, by Dr. Newman at 9:00 p.m. on 11/06/2018 CODE CR POS: OFF
[2018-11-06] MEDS: Pantoprazole 40 MG VIAL IVP SCH (22:00)
[2018-11-06] MEDS: Melatonin 3 MG TAB PO SCH (22:00)
[2018-11-06] MEDS: Cyclobenzaprine 10 MG TAB PO PRN (22:18)
--- NOTE | 2018-11-06 23:55 | PRG ---
DATE OF SERVICE: 11/06/2018 SUBJECTIVE: The patient remains on the surgical floor. He is status post ground level fall with a left hip fracture. The patient is postop day #12 open reduction and internal fixation of left hip fracture. The patient has had approximately 7 bright bloody bowel movements today. GI was consulted and the patient had just returned from nuclear medicine for a GI bleed scan, which was positive. The patient currently getting 500 mL of normal saline, NG tube flush per Dr. Bee. Return of fluid remains clear. The patient denies any abdominal pain at this time. Only complaint is the discomfort from the NG tube. NG tube was removed after irrigation per GI. OBJECTIVE: VITAL SIGNS: The patient remains afebrile, the patient remains slightly tachycardic at 104, blood pressure is stable. GENERAL: Awake, alert x3. GCS 15. Moderate discomfort due to NG tube. ABDOMEN: Soft, nontender, nondistended. EXTREMITIES: Neurovascularly intact x4. IMPRESSION: 1. Status post ground level fall. 2. Postop day #12 open reduction and internal fixation, left hip fracture. 3. Bright red blood per rectum, history of diverticulosis. 4. Gastrointestinal bleed. PLAN: Continue supportive care. We will continue to hold the patient's ibuprofen and Aspirin. Repeat labs in am. Job ID: [id number] MTDD
[2018-11-07] MEDS: Acetaminophen 500 MG TAB PO SCH ×5 (00:11→23:25)
[2018-11-07] MEDS: traMADol HCl 50 MG TAB PO SCH ×4 (04:00→20:56)
[2018-11-07 05:00] LABS: #Basophils 0.1 thou/uL (0.0-0.2); #Eosinphils 0.7 thou/uL (0.0-0.7); #Lymphocytes 2.3 thou/uL (1.20-3.40); #Monocytes 0.8 thou/uL (0.11-0.59); #Neutrophils 3.8 thou/uL (1.40-6.50); %Eosinophils 9.2 % (0.0-10.0); %Lymphocytes 29.7 % (21.0-51.0); %Monocytes 10.8 % (0.0-10.0); %Neutrophils 49.3 % (42.0-75.0); Mean Corpuscular HGB CONC 32.2 g/dL (32.0-36.0); Mean Corpuscular Volume 93.3 fL (78.0-98.0); Mean Platelet Volume 9.1 fL (7.4-10.4); Platelet Count 250 thou/uL (130-400); RBC Distribution Width 16.1 % (11.5-14.5); Red Blood Cell (RBC) Count 2.68 mill/uL (4.70-6.10); White Blood Cell (WBC) Count 7.7 thou/uL (4.8-10.8)
[2018-11-07 05:06] LABS: Hemoglobin 8.2 g/dL (14.0-18.0)
[2018-11-07 05:16] LABS: INR-International Normal Ratio 1.2; Prothrombin Time 14.8 SEC (12.0-14.7)
[2018-11-07 05:19] LABS: ALT (SGPT) 34 U/L (8-55); AST (SGOT) 30 U/L (5-34); Albumin 3.2 g/dL (3.4-4.8); Alkaline Phosphatase 85 U/L (40-150); Anion Gap 11 mmol/L (10-20); BUN (Urea Nitrogen) 25 mg/dL (8.4-25.7); Bilirubin, Total 0.7 mg/dL (0.2-1.2); Calc. Creatinine Clearance 77 mL/min (70-130); Carbon Dioxide 22 mmol/L (23-31); Chloride 103 mmol/L (98-107); Estimated GFR-MDRD 87; Globulin 2.3 g/dL (2.4-3.5); Glucose 125 mg/dL (83-110); Potassium 3.7 mmol/L (3.5-5.1); Protein, Total 5.5 g/dL (5.8-8.1); Sodium 132 mmol/L (136-145)
[2018-11-07] MEDS: Alfuzosin 10 MG TABDR...ER PO SCH ×2 (08:49→20:54)
[2018-11-07] MEDS: Losartan 25 MG TAB PO SCH (08:50)
[2018-11-07] MEDS: Hydrochlorothiazide 25 MG TAB PO SCH (08:50)
[2018-11-07] MEDS: Ascorbic Acid 500 mg Chewable Tablet PO SCH (08:51)
[2018-11-07] MEDS: Allopurinol 300 MG TAB PO SCH (08:51)
[2018-11-07] MEDS: Polyethylene Glycol 3350 17 GM Packet PO SCH (08:52)
[2018-11-07] MEDS: Senokot S 8.6-50 MG TAB PO SCH ×2 (08:52→20:55)
[2018-11-07] MEDS: Atorvastatin Calcium 10 MG TAB PO SCH (08:52)
[2018-11-07] MEDS: Tamsulosin HCl 0.4 MG CAP PO SCH (08:52)
[2018-11-07] MEDS: VERAPAMIL 180 MG PO SCH ×2 (09:33→19:05)
[2018-11-07] MEDS: Bisacodyl 10 MG SUPP PR SCH (09:33)
[2018-11-07] MEDS: Pantoprazole 40 MG VIAL IVP SCH ×2 (12:58→20:56)
[2018-11-07] MEDS: cycloSPORINE 0.05% Ophthalmic Droperette EA EYE SCH ×2 (13:12→20:54)
--- NOTE | 2018-11-07 15:30 | PRG ---
DATE OF SERVICE: SUBJECTIVE: The patient remains on the surgical floor. He is status post ground level fall, but sustained a left hip fracture. The patient is postop day 13 status post open reduction and internal fixation of the same. He has been working with physical and occupational therapy. Unfortunately due to insurance issues, we are unable to get the patient placed in a rehab facility. A skilled facility was obtained, but at that time the patient declined and would prefer to go home with home health. Unfortunately, yesterday he notified us that he is not having bright red blood per his rectum. He underwent evaluation and examination to include a tagged red blood cell scan, which showed he had an active GI bleed. This morning, his hemoglobin was 8.0 and he was slightly tachycardic, so he was given a unit of packed red blood cells. Otherwise, he states that his pain is controlled and he is tolerating his diet and we will attempt to work with therapy today. OBJECTIVE: VITAL SIGNS: Temperature is 98.8, heart rate 96, blood pressure 122/73, respirations 16, oxygen saturation is 96% on room air. GENERAL: The patient is resting comfortably in bed. He is awake, alert, and oriented. Mellissa Coma Scale is 15. HEENT: Unremarkable. LUNGS: Clear to auscultation with good inspiratory and expiratory effort. HEART: Regular rate and rhythm. ABDOMEN: Soft, flat, nontender with active bowel sounds. EXTREMITIES: Neurovascularly intact x4. LABORATORY FINDINGS: White blood cell count 7.7, hemoglobin 8.0, hematocrit 25.0, and platelets 250. Sodium 132, potassium 3.7, chloride 103, CO2 of 22, BUN 25, creatinine 0.84, glucose 125. IMAGING STUDIES: No radiographs reviewed this morning. ASSESSMENT: 1. Status post ground level fall. 2. Status post open reduction and internal fixation of left hip fracture, postop day 13. 3. Gastrointestinal bleed. 4. Bright red blood per rectum with history of diverticulosis. PLAN: Plan will be to continue supportive care. He was transfused 1 unit of packed red blood cell and we will repeat his labs in the morning. The patient has also had his Protonix increased to two times a day. We will continue to follow. We have discussed with the patient again the benefits of a [facility] facility, especially in light of this new issue. The evaluation, examination were done with Dr. Gutierrez this morning during rounds. Job ID: [id number]
--- NOTE | 2018-11-07 16:19 | PRG ---
DATE OF SERVICE: 11/07/2018 SUBJECTIVE: Mr. Justice has again had bloody stools today, but they are becoming route salesperson red. He has no abdominal pain, but has felt weaker today than he did when he worked with physical therapy a couple of days ago. He received a unit of blood transfusion today with clinical improvement. OBJECTIVE: VITAL SIGNS: Temperature 98.2, pulse 100, blood pressure 110/70. GENERAL: He is in no acute distress. Alert and oriented x3. He is pale. LUNGS: Clear to auscultation bilaterally. HEART: Regular rate and rhythm without murmur. ABDOMEN: Soft, nontender, nondistended. Bowel sounds are present. EXTREMITIES: No lower extremity edema. LABORATORY DATA: Creatinine 0.84. Hemoglobin is 8.0 this morning. IMPRESSION: Diverticular hemorrhage. He has had a couple of prior diverticular hemorrhages in the past that have been self-limited. 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 RECOMMENDATIONS: 1. We will give additional time to metabolize the aspirin. Hopefully, this again will stop on its own. 2. Transfuse as necessary. 3. Recheck his hemoglobin tomorrow morning. 4. If he continues with significant bleeding, then he may ultimately require colonoscopy, however, colonoscopy is a very low yield for therapeutic benefit in diverticular hemorrhage. Job ID: [id number]
[2018-11-07] MEDS: Melatonin 3 MG TAB PO SCH (20:56)
[2018-11-07] MEDS: Cyclobenzaprine 10 MG TAB PO PRN (20:59)
[2018-11-07 21:01] LABS: Hemoglobin 8.8 g/dL (14.0-18.0)
--- NOTE | 2018-11-07 23:11 | PRG ---
DATE OF SERVICE: 11/07/2018 SUBJECTIVE: The patient remains on the surgical floor. The patient is status post ground level fall, in which he sustained a left hip fracture. The patient is postop day #13 post open reduction and internal fixation of the left hip. The patient continues to work with Physical and Occupational Therapy. The patient reports that he is still having some bright red bloody stools, but it has decreased and states that it is only happening approximately every 4 hours and that it has decreased in amount. The patient voices no complaints at this time. The patient denies any abdominal pain, denies any nausea, vomiting, or dizziness. The patient continues to tolerate a clear liquid diet. OBJECTIVE: VITAL SIGNS: Stable. The patient remains afebrile. GENERAL: Elderly pleasant gentleman. No acute distress. The patient is awake, alert, and oriented x3. GCS 15. RESPIRATORY: Good inspiratory and expiratory effort, no respiratory distress. ABDOMEN: Soft, nontender, nondistended. EXTREMITIES: Neurovascularly intact x4. ASSESSMENT: 1. Status post ground level fall. 2. Status post open reduction and internal fixation of left hip fracture, postop day #13. 3. Gastrointestinal bleed. 4. Bright red blood per rectum with history of diverticulosis. PLAN: Continue supportive care. We will continue to monitor the patient's hemoglobin and hematocrit and transfuse as needed. We will continue to have patient work with Physical and Occupational Therapy. The patient is pending placement to [facility] facility. Job ID: [id number] MTDD
[2018-11-08] MEDS: traMADol HCl 50 MG TAB PO SCH ×3 (04:01→15:43)
[2018-11-08 04:47] LABS: #Basophils 0.1 thou/uL (0.0-0.2); #Eosinphils 1.1 thou/uL (0.0-0.7); #Lymphocytes 3.2 thou/uL (1.20-3.40); #Neutrophils 4.6 thou/uL (1.40-6.50); %Basophils 0.9 % (0.0-1.0); %Eosinophils 11.3 % (0.0-10.0); %Lymphocytes 31.7 % (21.0-51.0); %Monocytes 10.3 % (0.0-10.0); %Neutrophils 45.6 % (42.0-75.0); Hemoglobin 8.1 g/dL (14.0-18.0); Mean Corpuscular HGB CONC 33.8 g/dL (32.0-36.0); Mean Corpuscular Hemoglobin 31.7 pg (27.0-31.0); Mean Corpuscular Volume 93.8 fL (78.0-98.0); Mean Platelet Volume 9.2 fL (7.4-10.4); Platelet Count 228 thou/uL (130-400); RBC Distribution Width 15.5 % (11.5-14.5); Red Blood Cell (RBC) Count 2.56 mill/uL (4.70-6.10)
[2018-11-08 05:07] LABS: Anion Gap 12 mmol/L (10-20); BUN (Urea Nitrogen) 19 mg/dL (8.4-25.7); Calc. Creatinine Clearance 78 mL/min (70-130); Calcium 8.6 mg/dL (7.8-10.44); Carbon Dioxide 22 mmol/L (23-31); Chloride 105 mmol/L (98-107); Estimated GFR-MDRD 88; Glucose 106 mg/dL (83-110); Magnesium 1.8 mg/dL (1.6-2.6); Phosphorus 3.3 mg/dL (2.3-4.7); Potassium 3.6 mmol/L (3.5-5.1); Sodium 135 mmol/L (136-145)
[2018-11-08] MEDS: Acetaminophen 500 MG TAB PO SCH ×2 (05:07→15:41)
[2018-11-08] MEDS: cycloSPORINE 0.05% Ophthalmic Droperette EA EYE SCH (08:30)
[2018-11-08] MEDS: Allopurinol 300 MG TAB PO SCH (09:29)
[2018-11-08] MEDS: Ascorbic Acid 500 mg Chewable Tablet PO SCH (09:29)
[2018-11-08] MEDS: Tamsulosin HCl 0.4 MG CAP PO SCH (09:29)
[2018-11-08] MEDS: Bisacodyl 10 MG SUPP PR SCH (09:30)
[2018-11-08] MEDS: Hydrochlorothiazide 25 MG TAB PO SCH (09:30)
[2018-11-08] MEDS: Atorvastatin Calcium 10 MG TAB PO SCH (09:30)
[2018-11-08] MEDS: Losartan 25 MG TAB PO SCH (09:31)
[2018-11-08] MEDS: Pantoprazole 40 MG VIAL IVP SCH (09:31)
[2018-11-08] MEDS: Polyethylene Glycol 3350 17 GM Packet PO SCH (09:31)
[2018-11-08] MEDS: Alfuzosin 10 MG TABDR...ER PO SCH (09:34)
[2018-11-08] MEDS: Senokot S 8.6-50 MG TAB PO SCH (09:34)
--- NOTE | 2018-11-08 14:12 | PRG ---
DATE OF SERVICE: 11/08/2018 SUBJECTIVE: The patient remains on the surgical floor. He is status post ground level fall that sustained a left hip fracture. The patient is postop day #14, status post open reduction and internal fixation of the same. He has opted to go to a skilled facility, which currently Case Management has been working on. Previously, he had denied skilled facility and had considered home health PT. He continues with bright-red blood per rectum, but it has lessened in frequency. This morning, he did have 1 bowel movement with only slight bright-red blood compared to previous days, which he stated was copious. OBJECTIVE: VITAL SIGNS: Oxygen saturation 93% on room air, respiration 16, pulse 99, temp 97.8, blood pressure 124/69. GENERAL: The patient is sitting comfortably in his chair. He is awake, alert, and oriented. HEENT: Unremarkable. LUNGS: Clear to auscultation bilaterally. HEART: Regular rate and rhythm. ABDOMEN: Soft and nontender with active bowel sounds. LABORATORY DATA: White blood cell count 10, hemoglobin 8.1, hematocrit 24, which is stable from yesterday hemoglobin 8.8, hematocrit 26.2. Sodium 135, potassium 3.6, chloride 105, bicarb 22, BUN 19, creatinine 0.83. IMAGING STUDIES: No radiographs reviewed this morning. ASSESSMENT: 1. Status post ground level fall. 2. Status post open reduction and internal fixation of the left hip fracture postop day #14. 3. Gastrointestinal bleed secondary to diverticulosis. 4. Bright-red blood per rectum. PLAN: Plan will be continue supportive care. He was transfused with 1 unit of packed red blood cells yesterday and he remained stable today. Bowel movements have lessened in severity of bright-red blood per rectum. At this time, we are awaiting on placement to a alf facility, which he has agreed upon. Case Management is currently working on this. The evaluation and examination were done with Dr. Gutierrez this morning during rounds. Job ID: [id number] MTDD
[2018-11-08 15:27] VITALS: BP 102/62; TEMP 98.1
[2018-11-08] MEDS: VERAPAMIL 180 MG PO SCH (15:40)
--- NOTE | 2018-11-08 22:25 | DIS ---
DATE OF ADMISSION: 10/25/2018 DATE OF DISCHARGE: 11/08/2018 RESIDENT: Shaun Lamas DO ADMITTING ATTENDING: Dr. Farshad Gutierrez. DISCHARGE ATTENDING: Dr. Farshad Gutierrez. CONSULTS: 1. Gastroenterology, Dr. Albert Bee. 2. Orthopedics, Dr. Lyle Busby. PROCEDURES: Left intertrochanteric femur fracture. PRIMARY DIAGNOSES: 1. Intertrochanteric femur fracture. 2. Diverticulosis with acute GI bleed, but remained hemodynamically stable. SECONDARY DIAGNOSES: 1. Osteoarthritis. 2. Gout. 3. Hyperlipidemia. 4. Asthma. 5. Hypertension. 6. Benign prostatic hypertrophy. DISCHARGE MEDICATIONS: 1. Restasis 0.4 mL one drop to each eye b.i.d. 2. Fluticasone 50 mcg inhaled daily p.r.n. 3. Alfuzosin 10 mg tab extended release 2 tabs p.o. b.i.d. 4. Albuterol 90 mcg inhaled daily p.r.n. 5. Verapamil 180 mg p.o. b.i.d. 6. Flomax 0.4 mg p.o. daily. 7. Ferrous sulfate 300 mg p.o. daily. 8. Protonix 40 mg p.o. daily. 9. Atorvastatin 20 mg p.o. daily. 10. Melatonin 3 mg p.o. daily. 11. Hydrochlorothiazide 12.5 mg p.o. daily. 12. Acetaminophen 650 mg p.o. p.r.n. 13. Tizanidine 4 mg p.o. p.r.n. 14. Lunesta 2 mg p.o. daily. 15. Losartan 50 mg p.o. daily. 16. Allopurinol 300 mg p.o. daily. 17. Testosterone gel 25 mg q.a.m. 18. Sildenafil 100 mg p.o. daily. 19. Potassium 20 mEq p.o. daily. 20. Aspirin 81 mg p.o. b.i.d. 21. Dulcolax 10 mg AL daily. 22. Hydralazine 10 mg slow IV push q.4 p.r.n. 23. Motrin 600 mg p.o. q.8. 24. DuoNeb q.4 p.r.n. 25. Zofran 4 mg IV push q.6 p.r.n. 26. MiraLAX 17 g p.o. daily. 27. Phenergan 12.5 mg IV q.4 p.r.n. 28. Senokot 2 tabs p.o. b.i.d. 29. Tramadol 50 mg p.o. q.6 p.r.n. HISTORY OF PRESENT ILLNESS AND HOSPITAL COURSE: The patient is an 88-year-old male, who presented after a mechanical fall at home. The patient stood and his cane got hung up on the archway, he fell to his left side. Pelvic x-ray demonstrated intertrochanteric fracture of the left hip. Hip x-ray demonstrated nondisplaced intertrochanteric fracture of the left hip. An x-ray of the left knee was within normal limits. 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 He was taken same-day for repairment of his left intertrochanteric femur fracture with an implant done. Three-hole Synthes 135 degree dynamic hip screw and plate placed. He tolerated the operation well and did not have any complications. His hospital stay was complicated due to placement issues resulting in having extended period of stay. He was also complicated by a GI bleed secondary to known diverticulosis. He remained hemodynamically stable and without acute signs of decompensation. His hemoglobin on discharge was 8.1. Postprocedure, his hemoglobin was 9.5. He did require 1 unit of red blood cells to be transfused. His NSAIDs and anti- platelet medications were stopped, and by the day of discharge, his bleeding per rectum had decreased significantly. He will likely remain with hematochezia or bright red blood, but this would stop. In the future, he will likely have repeat bleeding by the diverticulosis. On 11/08/2018, he is being discharged to [facility], where he will undergo physical therapy and occupational therapy. DISPOSITION: Stable. DISCHARGE INSTRUCTIONS: 1. Location, [facility]. 2. Diet, regular diet. 3. Activity, per PT/OT. 4. Follow up Dr. Albert Bee in 2 to 3 weeks; Dr. Farshad Gutierrez; primary care provider, Dr. Pratik Mendoza. The visit with Dr. Gutierrez will be as needed. Pt evaluated and plan discussed with Dr. Ohaju at bedside. Job ID: [id number] CYNTHIA
== END 2018-11-08 18:03 | disposition swing bed (61) | DRG 480 ==
LOC: ERS 09:45 → SDC 12:30 → SJJU 15:00
PROVIDERS: ADMIT Surgery; ATTEND Surgery
PROC: 0QS704Z Reposition Left Upper Femur with Internal Fixation Device, Open Approach (ICD-10-PCS; principal; 2018-10-25)
PROC: 30233N1 Transfusion of Nonautologous Red Blood Cells into Peripheral Vein, Percutaneous Approach (ICD-10-PCS; 2018-11-07)
DX: S72.142A Displaced intertrochanteric fracture of left femur, initial encounter for closed fracture (principal); K57.91 Diverticulosis of intestine, part unspecified, without perforation or abscess with bleeding; D62 Acute posthemorrhagic anemia; M19.90 Unspecified osteoarthritis, unspecified site; M10.9 Gout, unspecified; E78.5 Hyperlipidemia, unspecified; J45.909 Unspecified asthma, uncomplicated; I10 Essential (primary) hypertension; N40.0 Benign prostatic hyperplasia without lower urinary tract symptoms; Z96.641 Presence of right artificial hip joint; Z96.652 Presence of left artificial knee joint; W18.30XA Fall on same level, unspecified, initial encounter; E83.42 Hypomagnesemia; E83.39 Other disorders of phosphorus metabolism; I95.9 Hypotension, unspecified; Y92.012 Bathroom of single-family (private) house as the place of occurrence of the external cause; Z79.899 Other long term (current) drug therapy
CPT/HCPCS: 36415; 36430; 71045; 72170; 76000; 78278; 80048; 80053; 83735; 84100; 84484; 85014; 85018; 85025; 85027; 85610; 85730; 86850; 86900; 86901; 93005; 96372; A9604; C1713; C9113; G0390; J0131; J0690; J1644; J1885; J2001; J2270; J2405; J2704; J3010; J3475; P9016